=== PATIENT | male | born 1960 | race Caucasian/White ===

== ENCOUNTER 2017-01-07 16:03 | Inpatient (IN) ==
[2017-01-07] MEDS ORDERED: SODIUM CHLORIDE 0.9% 1,000 ML IV STA (16:25)
[2017-01-07] MEDS ORDERED: MIDAZOLAM 2 MG/2 ML VIAL IV ONE (16:26)
[2017-01-07] MEDS ORDERED: ETOMIDATE 20 MG/10 ML VIAL IV STA (16:29)
[2017-01-07] MEDS ORDERED: VECURONIUM 10 MG VIAL IV STA (16:29)
--- NOTE | 2017-01-07 16:40 | Emergency Department Note ---
Akil Chiu Hilary, am scribing for, and in the presence of, Ivan Del Valle MD 16: 32. Ivon Chiu James D, MD, personally performed the services described in this documentation, ascribed by Lauren Barnard in my presence, and it is both accurate and complete 639 . Arrival - Arrival Limitations: Altered Mental Status Source: EMS - History of Present Illness Onset (ago): minute(s) <Ivan Del Valle - Last Filed: 01/07/17 17:01> <Anson Nieves - Last Filed: 01/07/17 18:55> - Arrival Time Seen by Provider: 01/07/17 16:25 - History of Present Illness HPI Narrative: Pt is a 56 y/o white male brought into the ED via EMS for psychiatric behavior. HPI is limited to EMS report due to pt being uncooperative. EMS reports that the pt was "rolling around in the mud" outside of someones house for 2 hours. The resident of the home was planning on giving him a bath with the garden hose when they noticed him "acting weird" so they called the police, who then called EMS. (Lauren Barnard) Pt is a 56 y/o white male brought into the ED via EMS for psychiatric behavior. HPI is limited to EMS report due to pt being uncooperative. EMS reports that the pt was "rolling around in the mud" outside of someones house for 2 hours. The resident of the home was planning on giving him a bath with the garden hose when they noticed him "acting weird" so they called the police, who then called EMS. (Ivan Del Valle) Allergies/Adverse Reactions: Allergies Allergy/AdvReac Type Severity Reaction Status Date / Time No Known Allergies Allergy Verified 05/28/15 12:34 Home Medications: Home Medications Medication Instructions Recorded Confirmed Type Amitriptyline [Elavil] 25 mg PO BEDTIME 01/07/17 History Furosemide [Furosemide] 10 - 20 mg PO DAILY PRN 01/07/17 History Gabapentin [Gabapentin] 300 mg PO TID 01/07/17 History Indomethacin [Indomethacin Cap] 25 mg PO TID W/MEALS 01/07/17 History Latanoprost [Latanoprost 0.005 % 1 drop BOTH EYES BEDTIME 01/07/17 History Oph Soln] Oxycodone HCl/Acetaminophen 1 tablet PO QID PRN 01/07/17 History [Oxycodone-Acetaminophen 10-325] tiZANidine [Zanaflex] 4 mg PO TID PRN 01/07/17 History Review of System - Review of System ROS unobtainable: due to mental status 12 point system: reviewed and no additional remarkable complaints except as stated <Ivan Del Valle - Last Filed: 01/07/17 17:01> Exam <Ivan Del Valle - Last Filed: 01/07/17 17:01> <Anson Nieves - Last Filed: 01/07/17 18:55> Physical Examination: GENERAL: This is a well-nourished, well-developed in no apparent distress. VITAL SIGNS: HEENT: Head is normocephalic and atraumatic. Pupils are equally round and reactive to light. Extraocular movement are intact. Oropharynx is benign with moist mucous membranes. NECK: Neck is soft and supple without tenderness. There are no masses. There is no lymphadenopathy. LUNGS: Lungs are clear to auscultation bilaterally. Chest rises symmetrically. There is no chest wall tenderness. CV: Heart is regular rate and rhythm without murmurs, rubs, or gallops. ABDOMEN: Abdomen is soft, non-tender to palpation. There are no abnormal masses palpated. There is no organomegaly. Bowel sounds are present and active. SKIN: Skin is warm and dry. No rash. EXTREMITIES: Patient has full range of motion without tenderness. There is no pedal edema. NEUROLOGIC: Awake, alert, and oriented x4. Cranial nerves II through XII are grossly intact. There are no motorsensory deficits. PSYCHIATRIC: Normal affect. Normal mood. ([place],Lauren) GENERAL: This is a acutely ill-appearing severely agitated, disheveled white male biting his tongue. Patient covered in mud. VITAL SIGNS: Heart rate 168, temp 104.2, blood pressure 105/78, O2 sat 95% HEENT: Normocephalic, pupils midrange minimally reactive. Conjunctiva injected with purulent discharge bilaterally. Blood present in oropharynx. Poor dentition. NECK: Neck is soft and supple without tenderness. There are no masses. There is no lymphadenopathy. LUNGS: Lungs are clear to auscultation bilaterally. Chest rises symmetrically. There is no chest wall tenderness. CV: Heart is rapid rate and rhythm without murmurs, rubs, or gallops. ABDOMEN: Abdomen is soft, non-tender to palpation. There are no abnormal masses palpated. There is no organomegaly. Bowel sounds are present and active. SKIN: Multiple excoriations in all extremities and on trunk. EXTREMITIES: Patient has full range of motion without tenderness. There is no pedal edema. NEUROLOGIC: Agitated, moves all extremities. PSYCHIATRIC: Agitated, nonverbal (Ivan Del Valle) Vital Signs: Vital Signs Temperature 104.2 F H 01/07/17 16:10 Pulse Rate 167 H 01/07/17 16:10 Respiratory Rate 15 01/07/17 18:33 Blood Pressure 105/78 01/07/17 16:10 Course <Ivan Del Valle - Last Filed: 01/07/17 17:01> - Consultations Time: 17:39 <Anson Nieves - Last Filed: 01/07/17 18:55> Course Narrative: Patient arrived in the emergency department by EMS from [place], [place]. The patient was profoundly agitated, covered in blood, banging his head. Intraosseous line was placed in the right lower extremity by Dr. Patel. Patient was given etomidate and vecuronium for sedation and patient was intubated with an 8.0 endotracheal tube without difficulty. Prior to intubation patient was noted to have blood in his oropharynx. Patient was intubated without difficulty and was noted to have good bilateral breath sounds. Color change was present. There are no breath sounds overlying the epigastrium. (Ivan Del Valle) - Consultations Consultation #1: The hospitalist service has been notified of the admission and will evaluate the patient. (Anson Nieves) Procedures - EJ/Peripheral Line Neck R Consent Obtained: verbal consent Time Out Performed: Yes Skin Cleansed in Sterile Fashion: Yes Size: 16 IV Secured and Dressing Applied: Yes Patient Tolerated Procedure: well - Intubation Time out performed: No sedative: Etomidate Mg Given: 40 paralytic: Vecuronium Mg Given: 20 Laryngoscope: fiber optic video scope ET Tube Size: 8 ET Tube Uncuffed: No Tube Secured Depth (cm): 23 Tube Secured Location: lips Tube Placement Confirmation: visualized tube passing through cords, equal breath sounds bilaterally, no breath sounds over epigastrium, confirmation detector color change Patient Tolerated Procedure: well Intubation Complications: none - IO Right Tibia Consent Obtained: verbal consent Time Out Performed: No Local Anesthetic: lidocaine 1% Amount of anesthesic used (mL): 5 IO Instrument Used to Penetrate the Cortex: battery powered IO drill Patient Tolerated Procedure: well Complications: none <Ivan Del Valle - Last Filed: 01/07/17 17:01> Results <Ivan Del Valle - Last Filed: 01/07/17 17:01> - Labs CBC & BMP: 01/07/17 17:05 01/07/17 17:05 Lab Results: I have reviewed the patients labs - Diagnostic Findings Procedure: Chest x-ray: report reviewed by me <Anson Nieves - Last Filed: 01/07/17 18:55> - Labs Labs: Lab Results WBC 34.5 T/CUMM (4-12) H 01/07/17 17:05 RBC 5.83 MC/CUMM (3.8-5.5) H 01/07/17 17:05 Hgb 17.8 GM/DL (14.0-18.0) 01/07/17 17:05 Hct 51.1 VOL% (42.0-52.0) 01/07/17 17:05 MCV 87.7 FL (87-102) 01/07/17 17:05 MCH 31 PG (27-34) 01/07/17 17:05 MCHC 34.8 GM/DL (32-36) 01/07/17 17:05 RDW 14.0 % (9.3-17.3) 01/07/17 17:05 Plt Count 201 T/CUMM (130-400) 01/07/17 17:05 MPV 11.9 FL (9.6-12.0) 01/07/17 17:05 Neut % (Auto) 88.9 % (38.7-73.9) H 01/07/17 17:05 Lymph % (Auto) 2.4 % (21.2-54.2) L 01/07/17 17:05 Sunflower % (Auto) 7.4 % (1.7-12.7) 01/07/17 17:05 Eos % (Auto) 0.0 % (0.00-10.9) 01/07/17 17:05 Baso % (Auto) 0.4 % (0.0-0.8) 01/07/17 17:05 Neut # (Auto) 30.7 10*3/uL (1.4-7.4) H 01/07/17 17:05 Lymph # (Auto) 0.8 10*3/uL (1.4-4.0) L 01/07/17 17:05 Sunflower # (Auto) 2.6 10*3/uL (0.11-0.8) H 01/07/17 17:05 Eos # (Auto) 0.0 10*3/uL (0.0-0.87) 01/07/17 17:05 Baso # (Auto) 0.1 10*3/uL (0.0-0.2) 01/07/17 17:05 Immature Gran % 0.9 % 01/07/17 17:05 Nucleated RBC % 0.0 /100WBC 01/07/17 17:05 Immature Gran # 0.30 # 01/07/17 17:05 Nucleated RBCs # 0.00 10*3/uL 01/07/17 17:05 INR 1.3 01/07/17 17:05 PT Patient/Control Mix 13.7 SECS 01/07/17 17:05 Circ Anticoag PTT 30.6 SECS (0-40) 01/07/17 17:05 Sodium 146 MMOL/L (136-145) H 01/07/17 17:05 Potassium 4.1 MMOL/L (3.5-5.1) 01/07/17 17:05 Chloride 107 MMOL/L (98-107) 01/07/17 17:05 Carbon Dioxide 21 MMOL/L (21-32) 01/07/17 17:05 Anion Gap 22.1 MMOL/L (5.0-15.0) H 01/07/17 17:05 BUN 52 MG/DL (7-18) H 01/07/17 17:05 Creatinine 2.90 MG/DL (0.70-1.30) H 01/07/17 17:05 GFR Calculation 29 ML/MIN 01/07/17 17:05 BUN/Creatinine Ratio 17.00 RATIO (6.00-20.00) 01/07/17 17:05 Glucose 90 MG/DL (74-106) 01/07/17 17:05 Calculated Osmolality 303.6 MOS/KG (273-304) 01/07/17 17:05 Lactic Acid 3.5 MMOL/L (0.4-2.0) H 01/07/17 17:05 Calcium 8.9 MG/DL (8.5-10.1) 01/07/17 17:05 Total Bilirubin 2.40 MG/DL (0.2-1.0) H 01/07/17 17:05 AST 152 U/L (0-37) H 01/07/17 17:05 ALT 51 U/L (16-61) 01/07/17 17:05 Alkaline Phosphatase 87 U/L (45-117) 01/07/17 17:05 Ammonia 66 UMOL/L (11-32) H 01/07/17 17:05 Troponin I 0.237 NG/ML (0.00-0.045) H 01/07/17 17:05 Total Protein 7.4 G/DL (6.4-8.3) 01/07/17 17:05 Albumin 4.1 G/DL (3.4-5.0) 01/07/17 17:05 Globulin 3.3 G/DL (2.3-3.5) 01/07/17 17:05 Albumin/Globulin Ratio 1.2 RATIO (1.1-2.2) 01/07/17 17:05 ABG pH 7.328 (7.35-7.45) L 01/07/17 16:25 ABG pCO2 37.6 MM HG (35-48) 01/07/17 16:25 ABG pO2 480.0 MM HG (80-95) H 01/07/17 16:25 ABG HCO3 19.9 MMOL/L (20-26) L 01/07/17 16:25 ABG Total CO2 16.0 MMOL/L (23-27) L 01/07/17 16:25 ABG O2 Saturation 99.8 % (95-100) 01/07/17 16:25 ABG Base Excess -5.8 MMOL/L (-2.5-2.5) L 01/07/17 16:25 Lab Results WBC 34.5 T/CUMM (4-12) H 01/07/17 17:05 RBC 5.83 MC/CUMM (3.8-5.5) H 01/07/17 17:05 Hgb 17.8 GM/DL (14.0-18.0) 01/07/17 17:05 Hct 51.1 VOL% (42.0-52.0) 01/07/17 17:05 MCV 87.7 FL (87-102) 01/07/17 17:05 MCH 31 PG (27-34) 01/07/17 17:05 MCHC 34.8 GM/DL (32-36) 01/07/17 17:05 RDW 14.0 % (9.3-17.3) 01/07/17 17:05 Plt Count 201 T/CUMM (130-400) 01/07/17 17:05 MPV 11.9 FL (9.6-12.0) 01/07/17 17:05 Neut % (Auto) 88.9 % (38.7-73.9) H 01/07/17 17:05 Lymph % (Auto) 2.4 % (21.2-54.2) L 01/07/17 17:05 Sunflower % (Auto) 7.4 % (1.7-12.7) 01/07/17 17:05 Eos % (Auto) 0.0 % (0.00-10.9) 01/07/17 17:05 Baso % (Auto) 0.4 % (0.0-0.8) 01/07/17 17:05 Neut # (Auto) 30.7 10*3/uL (1.4-7.4) H 01/07/17 17:05 Lymph # (Auto) 0.8 10*3/uL (1.4-4.0) L 01/07/17 17:05 Sunflower # (Auto) 2.6 10*3/uL (0.11-0.8) H 01/07/17 17:05 Eos # (Auto) 0.0 10*3/uL (0.0-0.87) 01/07/17 17:05 Baso # (Auto) 0.1 10*3/uL (0.0-0.2) 01/07/17 17:05 Total Counted 100 01/07/17 17:05 Immature Gran % 0.9 % 01/07/17 17:05 Nucleated RBC % 0.0 /100WBC 01/07/17 17:05 Immature Gran # 0.30 # 01/07/17 17:05 Segmented Neutrophils 90 % (50-85) H 01/07/17 17:05 Band Neutrophils 2 % (0-10) 01/07/17 17:05 Lymphocytes 3 % (20-55) L 01/07/17 17:05 Monocytes 5 % (2-15) 01/07/17 17:05 Nucleated RBCs # 0.00 10*3/uL 01/07/17 17:05 Platelet Estimate Normal 01/07/17 17:05 INR 1.3 01/07/17 17:05 PT Patient/Control Mix 13.7 SECS 01/07/17 17:05 Circ Anticoag PTT 30.6 SECS (0-40) 01/07/17 17:05 Sodium 146 MMOL/L (136-145) H 01/07/17 17:05 Potassium 4.1 MMOL/L (3.5-5.1) 01/07/17 17:05 Chloride 107 MMOL/L (98-107) 01/07/17 17:05 Carbon Dioxide 21 MMOL/L (21-32) 01/07/17 17:05 Anion Gap 22.1 MMOL/L (5.0-15.0) H 01/07/17 17:05 BUN 52 MG/DL (7-18) H 01/07/17 17:05 Creatinine 2.90 MG/DL (0.70-1.30) H 01/07/17 17:05 GFR Calculation 29 ML/MIN 01/07/17 17:05 BUN/Creatinine Ratio 17.00 RATIO (6.00-20.00) 01/07/17 17:05 Glucose 90 MG/DL (74-106) 01/07/17 17:05 Calculated Osmolality 303.6 MOS/KG (273-304) 01/07/17 17:05 Lactic Acid 3.5 MMOL/L (0.4-2.0) H 01/07/17 17:05 Calcium 8.9 MG/DL (8.5-10.1) 01/07/17 17:05 Total Bilirubin 2.40 MG/DL (0.2-1.0) H 01/07/17 17:05 AST 152 U/L (0-37) H 01/07/17 17:05 ALT 51 U/L (16-61) 01/07/17 17:05 Alkaline Phosphatase 87 U/L (45-117) 01/07/17 17:05 Ammonia 66 UMOL/L (11-32) H 01/07/17 17:05 Troponin I 0.237 NG/ML (0.00-0.045) H 01/07/17 17:05 Total Protein 7.4 G/DL (6.4-8.3) 01/07/17 17:05 Albumin 4.1 G/DL (3.4-5.0) 01/07/17 17:05 Globulin 3.3 G/DL (2.3-3.5) 01/07/17 17:05 Albumin/Globulin Ratio 1.2 RATIO (1.1-2.2) 01/07/17 17:05 Urine Color Dark yellow (Yellow) 01/07/17 17:05 Urine Appearance Cloudy (Clear) 01/07/17 17:05 Urine pH 5.0 (4.5-8.0) 01/07/17 17:05 Ur Specific [place] 1.023 (1.001-1.035) 01/07/17 17:05 Urine Protein >=500 MG/DL 01/07/17 17:05 Urine Glucose (UA) Negative mg/dL (Negative) 01/07/17 17:05 Urine Ketones 5 mg/dL (Negative) 01/07/17 17:05 Urine Blood Large mg/dL (Negative) 01/07/17 17:05 Urine Nitrate Negative (Negative) 01/07/17 17:05 Urine Bilirubin Negative mg/dL (Negative) 01/07/17 17:05 Urine Urobilinogen 2.0 EU/DL (0.2-1.0) H 01/07/17 17:05 Urine Leukocytes Negative Jasmina/ul (Negative) 01/07/17 17:05 Urine RBC 92 /HPF (0-4) 01/07/17 17:05 Urine WBC 3 /HPF (0-6) 01/07/17 17:05 Ur Squamous Epith Cells Occasional /HPF (0-10) 01/07/17 17:05 Ur Culture Indicated? Not indicated 01/07/17 17:05 ABG pH 7.328 (7.35-7.45) L 01/07/17 16:25 ABG pCO2 37.6 MM HG (35-48) 01/07/17 16:25 ABG pO2 480.0 MM HG (80-95) H 01/07/17 16:25 ABG HCO3 19.9 MMOL/L (20-26) L 01/07/17 16:25 ABG Total CO2 16.0 MMOL/L (23-27) L 01/07/17 16:25 ABG O2 Saturation 99.8 % (95-100) 01/07/17 16:25 ABG Base Excess -5.8 MMOL/L (-2.5-2.5) L 01/07/17 16:25 Urine Opiates Screen Negative (Negative) 01/07/17 17:05 Ur Barbiturates Screen Negative (Negative) 01/07/17 17:05 Ur Phencyclidine Scrn Negative (Negative) 01/07/17 17:05 U Amphetamine/Methamph Positive (Negative) H 01/07/17 17:05 U Benzodiazepines Scrn Negative (Negative) 01/07/17 17:05 U Cocaine Metab Screen Negative (Negative) 01/07/17 17:05 U Cannabinoids Screen Negative (Negative) 01/07/17 17:05 (Anson Nieves) Disposition Case discussed with: patient <Ivan Del Valle - Last Filed: 01/07/17 17:01> <Anson Nieves - Last Filed: 01/07/17 18:55> Clinical Impression: Altered mental status, Agitation, Profound agitation, Probable septic shock, Methamphetamine abuse Disposition: Still a Patient
[2017-01-07] MEDS ORDERED: SODIUM CHLORIDE 0.9% 2,000 ML IV STA (16:42)
[2017-01-07] MEDS ORDERED: MIDAZOLAM 10 MG/2 ML VIAL ONE (16:47)
--- NOTE | 2017-01-07 16:48 | XRay Report ---
Portable chest Date: 01/07/2017 Clinical history: Alteration of consciousness Comparison: None Technique: Portable AP supine chest Findings: The heart is minimally enlarged. The endotracheal tube is in satisfactory position. Atelectasis/infiltration at the left lung base. Degenerative changes noted. Impression: Endotracheal tube in satisfactory position. Atelectasis/infiltration at left lung base. PROCEDURE INTERPRETED AT [facility] DEPARTMENT OF RADIOLOGY Final Report Signed by: Dr. Jodie Pa
[2017-01-07 16:49] LABS: ABG Base Excess -5.8 MMOL/L (-2.5-2.5); ABG HCO3 19.9 MMOL/L (20-26); ABG Oxygen Saturation 99.8 % (95-100); ABG PCO2 37.6 MM HG (35-48); ABG PH 7.328 (7.35-7.45)
[2017-01-07] MEDS ORDERED: MIDAZOLAM 10 MG/2 ML VIAL IV STA (17:10)
[2017-01-07 17:13] LABS: Basophils # 0.1 10*3/uL (0.0-0.2); Basophils % 0.4 % (0.0-0.8); Hematocrit 51.1 VOL% (42.0-52.0); Hemoglobin 17.8 GM/DL (14.0-18.0); Immature Granulocytes % 0.9 %; Lymphocytes # 0.8 10*3/uL (1.4-4.0); Lymphocytes % 2.4 % (21.2-54.2); Mean Corpuscular HGB Conc 34.8 GM/DL (32-36); Mean Corpuscular Hemoglobin 31 PG (27-34); Mean Corpuscular Volume 87.7 FL (87-102); Mean Platelet Volume 11.9 FL (9.6-12.0); Monocytes # 2.6 10*3/uL (0.11-0.8); Monocytes % 7.4 % (1.7-12.7); Neutrophils # 30.7 10*3/uL (1.4-7.4); Neutrophils % 88.9 % (38.7-73.9); Platelet Count 201 T/CUMM (130-400); Red Blood Count 5.83 MC/CUMM (3.8-5.5); White Blood Count 34.5 T/CUMM (4-12)
[2017-01-07 17:24] LABS: INR 1.3; PT Patient Result 13.7 SECS; Partial Thromboplastin Time 30.6 SECS (0-40)
[2017-01-07 17:34] LABS: Albumin 4.1 G/DL (3.4-5.0); Bilirubin,Total 2.4 MG/DL (0.2-1.0); Calcium 8.9 MG/DL (8.5-10.1); Osmolality,Calculated 303.6 MOS/KG (273-304); Potassium 4.1 MMOL/L (3.5-5.1); Total Protein 7.4 G/DL (6.4-8.3)
[2017-01-07 17:35] LABS: Troponin I Only 0.237 NG/ML (0.00-0.045)
[2017-01-07] MEDS ORDERED: ETOMIDATE 20 MG/10 ML VIAL IV ONE (17:38)
[2017-01-07] MEDS ORDERED: VECURONIUM 10 MG VIAL IV ONE (17:38)
[2017-01-07 17:41] LABS: Apearance,Urine CLOUDY (Clear); Bilirubin,Urine Negative (Negative); Blood, Urine Large mg/dL (Negative); Glucose,Urine (UA) Negative (Negative); Ketones,Urine 5 mg/dL (Negative); Nitrite,Urine Negative (Negative); Protein,Urine >=500 MG/DL; RBC,Urine 92 /HPF (0-4); Squamous Epithelial Cell,Urine Occasional /HPF (0-10); Urine Color Dark yellow (Yellow); Urine Specific Gravity 1.023 (1.001-1.035); WBC,Urine 3 /HPF (0-6)
[2017-01-07] MEDS ORDERED: CEFTAROLINE 600 MG in SODIUM CHLORIDE 0.9% 100 ML IV STA (17:41)
[2017-01-07 17:47] LABS: Barbiturates Screen,Urine Negative (Negative); Benzodiazepines Screen,Urine Negative (Negative); Cannabinoid Screen,Urine Negative (Negative); Opiate Screen,Urine Negative (Negative); Phencyclidine Screen,Urine Negative (Negative)
--- NOTE | 2017-01-07 17:57 | CT Report ---
CT brain Indication: Mental status changes Comparison: None available Technique: Axial CT imaging of the brain is performed without contrast with 3 mm increments. Findings: No evidence of hemorrhage, mass mass effect midline shift or acute infarct seen. The brain parenchyma attenuation and differentiation appears within normal limits. The ventricles and cisterns are normal in caliber. No cranial or skull base abnormality is identified. Impression: No evidence of abnormality demonstrated. This CT exam was performed using one or more the following dose reduction techniques: Automated exposure control, adjustment of the MA and/or KV according to patient size, or use of iterative reconstruction technique. PROCEDURE INTERPRETED AT [facility] DEPARTMENT OF RADIOLOGY Final Report Signed by: Dr. Santhosh Alonso
[2017-01-07 18:05] LABS: Band Neutrophils 2 % (0-10); Lymphocytes 3 % (20-55); Platelet Estimate Normal; Segmented Neutrophils 90 % (50-85); Total Cells Counted 100
--- NOTE | 2017-01-07 18:11 | Hospitalist History & Physical ---
Assessment and Plan (1) Severe sepsis with septic shock Status: Acute Assessment and plan: We will admit to ICU and initiate sepsis bundle. Current Visit: Yes (2) Acute renal failure Status: Acute Assessment and plan: BUN/Creatinine noted at 52/2.90 at admission; this is likely secondary to volume depletion. We will rehydrate and reassess in AM. Current Visit: Yes (3) Pneumonia Status: Acute Assessment and plan: CXR revealed left lung base infiltrate /ateletctasis; will start empiric antibiotics. Will obtain naranjo cultures. Current Visit: Yes (4) Increased ammonia level Status: Acute Assessment and plan: Ammonia noted at 66; will start lactulose and reassess in AM. Current Visit: Yes History of Present Illness Chief complaint: altered mental status History of present illness: This is a very unfortunate 56 year old male that presented to the ED at [facility] this afternoon by EMS for altered mental status. There is no medical history available on this patient due to his altered mentation. Apparently, he was observed rolling around in a mudhole trying to chew his hands off. He was grossly altered, agitated, and combative upon arrival to the ED.He was electively intubated in the ED for airway protection. At the time of presentation, the patient was noted to be profoundly tachycardic with a heart rate of 167 and hyperthermic with a temperature of 104.2. Labs were obtained which revealed gross leukocytosis with a white blood cell count of 34.5, decrease in renal funtion with BUN of 52 and creatinine of 2.90, lactid acid of 3.5, annmonia of 66, AST of 152, total bilirubin of 2.40 and troponin of 0.237. Chest radiograph rvealed atletectasis and infiltration at the left lung base. CT head was essentially unremarkable; no evidence of acute intracranial process or mass effect. After brief discussion with both Dr. Nieves and , the patient will admitted to the hospitalist service for continuation of care. We will consult pulmonary to assist during the clinical encounter. Allergies Allergy/AdvReac Type Severity Reaction Status Date / Time No Known Allergies Allergy Verified 05/28/15 12:34 Medical,Surgical,& Family Hx - Social History Smoking Status: Unknown if ever smoked Frequency of Alcohol Use: Unknown Type of Drug Use: Unknown ROS unobtainable: due to endotracheal tube, due to mental status Exam - Constitutional Vitals: Period Temp Pulse Resp BP Sys/Raman Pulse Ox Last 24 Hr 104.2 F-104.2 F 167-167 12-12 105-105/78-78 General appearance: normal weight, severe distress, disheveled, other (dirty; not well kept) - Head Head exam: Present: normal inspection, normocephalic, atraumatic - Eye Eye exam: Present: EOMI, scleral icterus, other (drainage from both eyes). Absent: conjunctival injection Pupils: Present: JENNIFFER, normal accommodation - ENT ENT exam: Present: normal exam, normal external ear exam, other (poor dentation) - Neck Neck exam: Present: normal inspection. Absent: lymphadenopathy, meningismus, tenderness, thyromegaly - Respiratory Respiratory exam: Present: clear to auscultation bilaterally, other (intubated; ETT in place) - Cardiovascular Cardiovascular exam: Present: regular rate and rhythm, tachycardia. Absent: carotid bruit, diastolic murmur, gallop, JVD, rubs, systolic murmur - GI/Abdominal GI/Abdominal exam: Present: normal bowel sounds, soft. Absent: distended, firm , mass - Extremities Exam Extremities exam: Present: other (deformity to left leg) - Neurological Exam Neurological exam: Present: altered, other (sedated on ventilator) - Psychiatric Psychiatric exam: Present: other (sedated) - Skin Skin exam: Present: other (dirty and bloody) Results - Labs CBC & BMP: 01/07/17 17:05 01/07/17 17:05 Lab Results: I have reviewed the past 24 hour labs Sepsis - Sepsis Classification of Sepsis: Septic Shock
[2017-01-07] MEDS: MIDAZOLAM 100 MG in SODIUM CHLORIDE 0.9% 80 ML IV SCH (18:30)
[2017-01-07] MEDS ORDERED: CEFTAROLINE 600 MG VIAL IV ONE (18:32)
[2017-01-07] MEDS ORDERED: VECURONIUM 10 MG VIAL IV PRN (19:21)
[2017-01-07] MEDS ORDERED: LORazepam 2 MG/1 ML VIAL IV PRN (19:21)
[2017-01-07] MEDS: PROPOFOL 1,000 MG/100 ML BOTTLE IV SCH (20:05)
[2017-01-07] MEDS: SILVER SULFADIAZINE 1% CREAM 25 GM TUBE TOP SCH (23:36)
[2017-01-08] MEDS: PROPOFOL 1,000 MG/100 ML BOTTLE IV SCH ×5 (00:26→20:08)
[2017-01-08 03:41] LABS: ABG Base Excess -8.9 MMOL/L (-2.5-2.5); ABG HCO3 17.6 MMOL/L (20-26); ABG Oxygen Saturation 99.3 % (95-100); ABG PCO2 40.7 MM HG (35-48); ABG PH 7.259 (7.35-7.45); ABG TCO2 15.2 MMOL/L (23-27); Allen Test Positive; Pt O2 Delivery Device Ventilator
[2017-01-08 06:42] LABS: Basophils % 0.2 % (0.0-0.8); Hemoglobin 16.1 GM/DL (14.0-18.0); Immature Granulocytes % 0.5 %; Lymphocytes # 2.1 10*3/uL (1.4-4.0); Lymphocytes % 11.2 % (21.2-54.2); Mean Corpuscular HGB Conc 33.5 GM/DL (32-36); Mean Corpuscular Hemoglobin 30 PG (27-34); Mean Corpuscular Volume 88.9 FL (87-102); Mean Platelet Volume 12.6 FL (9.6-12.0); Monocytes # 1.7 10*3/uL (0.11-0.8); Monocytes % 9.4 % (1.7-12.7); Neutrophils # 14.5 10*3/uL (1.4-7.4); Neutrophils % 78.7 % (38.7-73.9); Red Cell Distribution Width 14.7 % (9.3-17.3)
[2017-01-08 06:53] LABS: Platelet Count 110 T/CUMM (130-400); White Blood Count 18.4 T/CUMM (4-12)
--- NOTE | 2017-01-08 06:59 | XRay Report ---
Exam: XR chest 1V portable Date: 01/08/2017 4:00 AM Indication: Follow-up ventilator respiratory failure Comparison: 01/07/2017 Technical: AP portal Findings: Endotracheal tube at the level aortic knob. Heart is normal in size. External cardiac leads are present. No obvious consolidating infiltrates or effusions or pneumothorax. Arthritic change present shoulders bilaterally. Impression: 1. Stable position of the endotracheal tube 2. No significant interval change PROCEDURE INTERPRETED AT [facility] DEPARTMENT OF RADIOLOGY Final Report Signed by: Dr. Fady Carlos
[2017-01-08 07:16] LABS: Lactic Acid 2.2 MMOL/L (0.4-2.0)
[2017-01-08 07:29] LABS: Albumin 3.1 G/DL (3.4-5.0); Bilirubin,Total 1.7 MG/DL (0.2-1.0); Magnesium 2.5 MG/DL (1.8-2.4); Potassium 3.7 MMOL/L (3.5-5.1); Total Protein 6.1 G/DL (6.4-8.3)
[2017-01-08 07:30] LABS: Troponin I Only 0.063 NG/ML (0.00-0.045)
--- NOTE | 2017-01-08 09:36 | Pulmonology Consult Note ---
History of Present Illness Chief complaint: Mechanical ventilation. Altered mental status. Drug abuse. History of present illness: Mr. Espitia is a 56 year old white male whom I been asked to see in pulmonary consultation for management of mechanical ventilation and pulmonary problems. This patient was brought to the emergency room with irrational behavior. He did have an altered mental status. He was observed rolling around in a motor hole trying to chew his hands off. He was extremely agitated and combative when he arrived in the emergency room. He was electively intubated in the emergency department for airway protection. At the time of admission he had a marked tachycardia with heart rate of 167. He was hypothermic with a temperature of 104.2. He had a white blood cell count of 34,500. He had a creatinine of 2.9 with a BUN of 52. Lactic acid level is 3.5 and ammonia level is elevated 656. Total bilirubin was elevated 2.4 and transaminases were up. His troponin was 0.237. He had an elevated CPK. Chest x-ray shows at least mild atelectasis at the right base and the left base. He had a CT of the head which showed no acute changes. Drug toxicology was positive for amphetamine/ methamphetamine. Patient is stabilized on mechanical ventilation for the present time. Review of his hospital records show that he receives pain medicines from Dr. Hoyos and he said multiple drug screens which showed no irregularity. Past history. See above. Patient is disabled but we do not know why. There is essentially no other information known about him. I am not sure if any family members or friends have shown up at this point. Social history. Disabled. Because of disability is not known. Does appear to patient takes chronic pain medicines. Family history. Unknown. Chest x-ray. An admission there was mild atelectasis at the right base and the left base. We will follow-up chest x-ray on mechanical ventilation this appears to have resolved. ABGs on mechanical ventilation FiO2 50% shows a pH 7.259, PCO2 40.7, PO2 of 217 and a bicarb of 17.6. Lab. Sodium is elevated 150. Potassium is 3.7. Creatinine is dropped from 2.90-1.40. BUN is 43. Glucoses are normal. Lactic acid remains slightly elevated 2.2 at admission lactic acid was 3.5. Total bilirubin is dropped from 2.40-1.70. AST is elevated 214 and ALT is elevated 65. Alkaline Dayan is normal. Ammonia has dropped from 66-27. Total CPK is 5092. INR is 1.1. White blood cell count is dropped from 34,000 518,400. H&H is 16.1/48.0. Platelet count is dropped from 201,000 210,000. Physical exam. Vital signs. See below. Temperature is been as high as 104.5. Temp is 96.5. Neurologic. Patient is sedated. He reportedly moves all 4 extremities and grossly his cranial nerves were intact. Time of admission. Psychological. Altered mental status at admission. Now sedated Skin. There are multiple wounds on all 4 extremities. See photographs. Face. Symmetrical. Lips and tongue are normal. Neck. Symmetrical. No meningismus. Lymphatics. No submandibular cervical supraclavicular or epitrochlear adenopathy Chest is clear. Heart. No gallop Abdomen. Nondistended. Only rare bowel sounds. and rectal deferred. Lower extremities. Chronic venous stasis. CT scan Arterial. Carotid upstroke is fair. Radial pulses are palpable. Lower extremity pulses are nonpalpable. Venous exam. Veins of the neck and upper extremities appear to be normal. Chronic venous stasis over the lower extremities. The remainder the physical exam is noncontributory. Impression. 1. Altered mental status resulting in multiple self-inflicted injuries and requiring intubation to protect airways and sedation to protect the patient. 2. Multiple skin injuries all 4 extremities. 3. Disability. Reasons unknown. 4. Probable chronic pain based on records available to us. 5. Drug overdose with toxicology positive for amphetamines/methamphetamine. Consider the possibility of other drugs. Plan. 1. Mechanical ventilation. Weaning protocol 2. Physical therapy protocol while on mechanical ventilation. 3. Watch chest x-ray and ABGs for evidence of aspiration injury. 4. See orders. Home Medications Medication Instructions Recorded Confirmed Type Amitriptyline [Elavil] 25 mg PO BEDTIME 01/07/17 History Furosemide [Furosemide] 10 - 20 mg PO DAILY PRN 01/07/17 History Gabapentin [Gabapentin] 300 mg PO TID 01/07/17 History Indomethacin [Indomethacin Cap] 25 mg PO TID W/MEALS 01/07/17 History Latanoprost [Latanoprost 0.005 % 1 drop BOTH EYES BEDTIME 01/07/17 History Oph Soln] Oxycodone HCl/Acetaminophen 1 tablet PO QID PRN 01/07/17 History [Oxycodone-Acetaminophen 10-325] tiZANidine [Zanaflex] 4 mg PO TID PRN 01/07/17 History Allergies Allergy/AdvReac Type Severity Reaction Status Date / Time No Known Allergies Allergy Verified 05/28/15 12:34 Exam (Pulmonay) H&P - Constitutional Vitals: Period Temp Pulse Resp BP Sys/Raman Pulse Ox Last 24 Hr 96.6 F-104.5 F 90-147 12-23 83-136/58-98 94-100 Medical,Surgical,& Family Hx - Social History Smoking Status: Unknown if ever smoked Frequency of Alcohol Use: Unknown Type of Drug Use: Unknown Results - Labs CBC & BMP: 01/08/17 06:30 01/08/17 06:30
[2017-01-08] MEDS: SILVER SULFADIAZINE 1% CREAM 25 GM TUBE TOP SCH (09:43)
--- NOTE | 2017-01-08 13:43 | Hospitalist Progress Note ---
Assessment and Plan (1) Ventilator dependence Status: Acute Current Visit: Yes (2) Altered mental status Status: Acute Current Visit: Yes (3) Agitation Status: Acute Current Visit: Yes (4) Acute renal failure Status: Acute Current Visit: Yes (5) Increased ammonia level Status: Acute Current Visit: Yes (6) Methamphetamine abuse Status: Acute Current Visit: Yes Hospitalist: Subjective Interval history: No acute events overnight. Patient is intubated and sedated. Noted to have multiple abrasions all over body. Wound care consulted. Lactic acid, creatinine and leukocytosis improving. Pulmonary consulted for assistance with vent. Also noted to have pus coming from eyes, started polymyxin. Exam - Constitutional Vitals: Period Temp Pulse Resp BP Sys/Raman Pulse Ox Last 24 Hr 96.6 F-104.5 F 90-147 12-23 83-136/58-98 94-100 General appearance: over weight - Head Head exam: Present: normocephalic, atraumatic - Eye Eye exam: Present: EOMI Pupils: Present: JENNIFFER - ENT ENT exam: Present: normal exam - Neck Neck exam: Present: normal inspection - Respiratory Respiratory exam: Present: clear to auscultation bilaterally. Absent: rhonchi, wheezes - Cardiovascular Cardiovascular exam: Present: regular rate and rhythm - GI/Abdominal GI/Abdominal exam: Present: normal bowel sounds, soft - Extremities Exam Extremities exam: Present: normal inspection - Neurological Exam Neurological exam: Present: other (sedated) - Skin Skin exam: Present: warm, intact Results - Labs CBC & BMP: 01/08/17 06:30 01/08/17 06:30
[2017-01-08] MEDS: DESITIN 4OZ/NYSTATIN 15 GRAM MIXTURE PASTE TOP SCH ×2 (14:04→20:07)
[2017-01-08] MEDS: ENOXAPARIN 40 MG/0.4 ML SYRINGE SUBCUT SCH (14:05)
[2017-01-08] MEDS: POLYMYXIN/TRIMETHOPRIM OPH SOL 10 ML BOTTLE BOTH EYES SCH ×3 (14:05→20:06)
[2017-01-08] MEDS: AMPICILLIN/SULBACTAM 1,500 MG in SODIUM CHLORIDE 0.9% 100 ML IV SCH ×2 (14:05→18:35)
[2017-01-08] MEDS: MIDAZOLAM 100 MG in SODIUM CHLORIDE 0.9% 80 ML IV SCH ×2 (17:07→20:08)
[2017-01-08] MEDS ORDERED: DEXTROSE 5% NACL 0.45% 500 ML IV SCH (22:00)
[2017-01-08] MEDS: DEXTROSE 5% NACL 0.45% 1,000 ML IV SCH (23:47)
[2017-01-09] MEDS: AMPICILLIN/SULBACTAM 1,500 MG in SODIUM CHLORIDE 0.9% 100 ML IV SCH ×4 (01:22→20:43)
[2017-01-09] MEDS: PROPOFOL 1,000 MG/100 ML BOTTLE IV SCH ×6 (01:23→22:43)
[2017-01-09 04:18] LABS: ABG Base Excess 1.9 MMOL/L (-2.5-2.5); ABG HCO3 26.1 MMOL/L (20-26); ABG Oxygen Saturation 97.4 % (95-100); ABG PCO2 45.7 MM HG (35-48); ABG PH 7.388 (7.35-7.45); ABG PO2 88.9 MM HG (80-95); ABG TCO2 23.3 MMOL/L (23-27); Allen Test Positive; Pt O2 Delivery Device Ventilator
[2017-01-09 05:52] LABS: Basophils % 0.2 % (0.0-0.8); Eosinophils % 0.1 % (0.00-10.9); Hematocrit 44.3 VOL% (42.0-52.0); Hemoglobin 14.9 GM/DL (14.0-18.0); Immature Granulocytes % 1.3 %; Immature Granulocytes Absolute 0.24 #; Lymphocytes % 5.3 % (21.2-54.2); Mean Corpuscular HGB Conc 33.6 GM/DL (32-36); Mean Corpuscular Hemoglobin 30 PG (27-34); Mean Corpuscular Volume 88.4 FL (87-102); Mean Platelet Volume 13.3 FL (9.6-12.0); Monocytes # 1.4 10*3/uL (0.11-0.8); Monocytes % 7.7 % (1.7-12.7); Neutrophils # 15.6 10*3/uL (1.4-7.4); Neutrophils % 85.4 % (38.7-73.9); Platelet Count 101 T/CUMM (130-400); Red Blood Count 5.01 MC/CUMM (3.8-5.5); White Blood Count 18.3 T/CUMM (4-12)
[2017-01-09] MEDS: DEXTROSE 5% NACL 0.45% 1,000 ML IV SCH ×3 (06:23→22:43)
[2017-01-09 06:44] LABS: Albumin 2.7 G/DL (3.4-5.0); Bilirubin,Total 1.1 MG/DL (0.2-1.0); Calcium 8.4 MG/DL (8.5-10.1); Osmolality,Calculated 306.7 MOS/KG (273-304); Potassium 3.6 MMOL/L (3.5-5.1); Total Protein 5.7 G/DL (6.4-8.3)
--- NOTE | 2017-01-09 06:58 | XRay Report ---
Portable chest Date: 01/09/2017 Clinical history: Ventilator Comparison: 01/08/2017 Technique: Portable AP sitting chest Findings: The heart is minimally enlarged with stable support devices. Progressive atelectasis/consolidation at the right lung base with relative elevation of the right hemidiaphragm. Associated larger right pleural effusion. Stable mediastinum and osseous structures. Impression: Progressive atelectasis/infiltration at the right lung base with larger right pleural effusion and progressive elevation of the right hemidiaphragm. Stable supportive devices. PROCEDURE INTERPRETED AT [facility] DEPARTMENT OF RADIOLOGY Final Report Signed by: Dr. Jodie Pa
[2017-01-09] MEDS: SILVER SULFADIAZINE 1% CREAM 25 GM TUBE TOP SCH (09:36)
[2017-01-09] MEDS: POLYMYXIN/TRIMETHOPRIM OPH SOL 10 ML BOTTLE BOTH EYES SCH ×4 (09:36→20:43)
[2017-01-09] MEDS: DESITIN 4OZ/NYSTATIN 15 GRAM MIXTURE PASTE TOP SCH ×2 (09:37→20:43)
--- NOTE | 2017-01-09 10:13 | Event Note ---
In hospital diagnostic and therapeutic fiberoptic bronchoscopy. Bilateral lavages from the right upper lung, right middle lung, right lower lung, left upper lung and left lower lung were sent for cytology, Gram stain, bacterial culture, fungal stains and culture. This is a 56-year-old white male with altered mental status who is on mechanical ventilation. His initial chest x-ray showed early bibasilar infiltrates. These seem to clear after he was intubated and started on mechanical ventilation. Today's x-ray shows that he has atelectasis of the right middle lung and right lower lung. There is microatelectasis of the left lower lung. For these reasons she is evaluated with fiberoptic bronchoscopy. The endotracheal tube is in good position. Distal trachea was erythematous. The john was sharp. Right mainstem bronchus was occluded with thick tenacious secretions and brownish material that appeared to be gastric in etiology. This extended into the right upper lung, the right middle lung and the right lower lung. These areas were lavaged and suctioned until clear. There was underlying erythema of the bronchial mucosa but no friability. No foreign bodies other than gastric contents were seen. Left mainstem bronchus was occluded with thick tenacious whitish and brownish discolored material. This had the appearance of pulmonary secretions and gastric contents. This extended into the left upper lung where there was friability of the lingula. The left upper lung was lavaged and suctioned until clear. Material also virtually occluded the left lower lung. This area was again lavaged and suction until clear. In the left lower lung there was endobronchial erythema but no erosions and no significant friability. There were no endobronchial lesions to suggest cancer in either bronchial tree. Patient tolerated procedure well there were no complications. Impression. 1. Mechanical ventilation. 2. Ineffective cough 3. Aspiration of gastric contents into the lungs. 4. Retention of gastric contents and pulmonary secretions. 5. Atelectasis of the right middle lung right lower lung and left lower lung secondary to retention of secretions and aspirate. Plan. 1. Check bronchoscopy specimens 2. Follow-up chest x-ray 3. Is possible this patient will need a repeat bronchoscopy.
--- NOTE | 2017-01-09 10:16 | Pulmonology Progress Note ---
Pulmonary - PN: Subj Interval history: This is a 56-year-old white male whom I saw in pulmonary consultation on 2016. My impressions were. 1. Altered mental status resulting in multiple self-inflicted injuries and requiring intubation to protect airways and sedation to protect the patient. 2. Multiple skin injuries all 4 extremities. 3. Disability. Reasons unknown. 4. Probable chronic pain based on records available to us. 5. Drug overdose with toxicology positive for amphetamines/methamphetamine. Consider the possibility of other drugs. 6. Since my initial visit chart notes from the nurse says that sister who lives out of town his call. She says she is the only family member that still tries to help him. She says she has had problems with drugs since age 16. He is been in and out of the [facility] in the past. His sister says he is currently on probation she is currently reporting to his poor role officer. See nurse's notes for more complete information. 01/09/2017. This patient is sedated. He is on the weaning protocol. His x-ray showed right middle lung right lower lung and left lower lung atelectasis. He was evaluated with fiberoptic bronchoscopy this morning. He had retained pulmonary secretions and he had gastric contents bilaterally. This was extensive. Specimens were sent for cytology, bacterial and fungal studies. He tolerated procedure well. Follow-up chest x-ray is pending. This patient has a gram-positive cocci growing from blood cultures. His previous sputum's have shown a gram-negative gab and gram-positive cocci. This patient is on Zosyn. His renal failure has resolved. I will add Levaquin 500 mg IV piggyback once a day until we see what the cultures and sensitivities are. His admit creatinine was 2.90 and is now dropped to 0.80. Admit white blood cell count was 34,500 and it has now dropped 18,003. H&H and platelets are stable. With aspiration injury am going to cover this patient with Solu-Medrol 40 IV push twice a day. His ABGs on mechanical ventilation PEEP of 5 and FiO2 50% shows a pH 7.39, PCO2 of 46, PO2 of 89 and a bicarb of 26.1. Note the sodium is 152 with a potassium of 3.6. Transaminases are elevated. Creatinine was 5092 and has dropped to 3864 Labs been reviewed. Medicines been reviewed. Physical exam. Vital signs. See below. Neurologic. Patient moves all fours. He is sedated. Extremities and face and trunk show multiple abrasions which are being treated. Face is symmetrical. Lips and tongue are normal. Neck. No meningismus. Lymphatics. No submandibular cervical supraclavicular or epitrochlear adenopathy. Chest. Coarse large airway congestion. Bibasilar inspiratory squeaks. Heart. No gallop Abdomen. Rare bowel sounds. Lower extremities show some chronic venous stasis changes. The remainder the exam is noncontributory. Plan. 1. See my note 01/09/2017. Check blood cultures. On Zosyn. Add Levaquin. Check bronchoscopy specimens. Fiberoptic bronchoscopy Aspiration. Add Solu-Medrol. 2. Daily chest x-ray, ABGs and lab. 3. Mechanical ventilation. Weaning protocol 4. Physical therapy protocol while on mechanical ventilation. Exam (Progress Note) - Constitutional Vitals: Period Temp Pulse Resp BP Sys/Raman Pulse Ox Last 24 Hr 97.4 F-98.5 F 14-121 10-25 91-124/61-90 94-100 Results - Labs CBC & BMP: 01/09/17 05:14 01/09/17 05:14
[2017-01-09] MEDS: LEVOFLOXACIN INJ 500 MG in PREMIX 1 EACH IV SCH (11:47)
[2017-01-09] MEDS: methylPREDNISolone SOD SUC 40 MG/1 ML VIAL IV SCH ×2 (11:47→22:48)
[2017-01-09] MEDS: ENOXAPARIN 40 MG/0.4 ML SYRINGE SUBCUT SCH (13:17)
[2017-01-09] MEDS ORDERED: GLUCAGON 1 MG VIAL IM PRN (15:04)
[2017-01-09] MEDS ORDERED: DEXTROSE 50% 25 GM/50 ML VIAL IV PRN (15:04)
[2017-01-09] MEDS ORDERED: MAGNESIUM SULF RIDER 2 GM in PREMIX 1 EACH IV PRN (15:05)
[2017-01-09] MEDS ORDERED: POTASSIUM CHLORIDE RIDER 10 MEQ in PREMIX 1 EACH IV PRN (15:05)
[2017-01-09] MEDS ORDERED: MAGNESIUM SULF RIDER 4 GM in PREMIX 1 EACH IV PRN (15:05)
--- NOTE | 2017-01-09 15:14 | Hospitalist Progress Note ---
Assessment and Plan (1) Ventilator dependence Status: Acute Current Visit: Yes (2) Altered mental status Status: Acute Current Visit: Yes (3) Agitation Status: Acute Current Visit: Yes (4) Acute renal failure Status: Acute Current Visit: Yes (5) Increased ammonia level Status: Acute Current Visit: Yes (6) Methamphetamine abuse Status: Acute Current Visit: Yes Hospitalist: Subjective Interval history: No acute events overnight. Patient still intubated and sedated. Pulmonary assisting. Bronch today. Blood culture 1/2 with gram positive cocci. MRSA PCR positive. Will add vancomycin. Continue zosyn and levaquin. Repeat blood cultures. Sodium increasing, increase free water flushes. Exam - Constitutional Vitals: Period Temp Pulse Resp BP Sys/Raman Pulse Ox Last 24 Hr 97.4 F-98.5 F 14-121 10-25 91-124/61-90 94-100 General appearance: over weight - Head Head exam: Present: normocephalic, atraumatic - Eye Eye exam: Present: EOMI Pupils: Present: JENNIFFER - ENT ENT exam: Present: normal exam - Neck Neck exam: Present: normal inspection - Respiratory Respiratory exam: Present: clear to auscultation bilaterally. Absent: wheezes - Cardiovascular Cardiovascular exam: Present: regular rate and rhythm - GI/Abdominal GI/Abdominal exam: Present: normal bowel sounds, soft. Absent: tenderness, rebound - Extremities Exam Extremities exam: Present: normal inspection - Back Exam Back exam: Present: normal inspection - Skin Skin exam: Present: warm, intact Results - Labs CBC & BMP: 01/09/17 05:14 01/09/17 05:14
[2017-01-09] MEDS: VANCOMYCIN INJ 1,500 MG in SODIUM CHLORIDE 0.9% 500 ML IV SCH (15:59)
[2017-01-09] MEDS: MIDAZOLAM 100 MG in SODIUM CHLORIDE 0.9% 80 ML IV SCH (17:36)
[2017-01-09] MEDS: INSULIN REGULAR 100 UNIT/ML SUBCUT SCH (18:10)
[2017-01-10] MEDS: INSULIN REGULAR 100 UNIT/ML SUBCUT SCH ×4 (00:46→18:24)
[2017-01-10] MEDS: AMPICILLIN/SULBACTAM 1,500 MG in SODIUM CHLORIDE 0.9% 100 ML IV SCH ×4 (03:07→22:04)
[2017-01-10] MEDS: SILVER SULFADIAZINE 1% CREAM 25 GM TUBE TOP SCH ×2 (03:44→09:22)
[2017-01-10] MEDS: PROPOFOL 1,000 MG/100 ML BOTTLE IV SCH ×2 (04:32→21:27)
[2017-01-10 04:37] LABS: ABG Base Excess 2.7 MMOL/L (-2.5-2.5); ABG HCO3 27.8 MMOL/L (20-26); ABG Oxygen Saturation 97.6 % (95-100); ABG PCO2 44.1 MM HG (35-48); ABG PH 7.417 (7.35-7.45); ABG PO2 98.9 MM HG (80-95); ABG TCO2 29.1 MMOL/L (23-27); Allen Test Positive; Pt O2 Delivery Device Ventilator
[2017-01-10] MEDS: VANCOMYCIN INJ 1,500 MG in SODIUM CHLORIDE 0.9% 500 ML IV SCH ×2 (04:45→16:32)
[2017-01-10 05:38] LABS: Basophils % 0.1 % (0.0-0.8); Hematocrit 41.6 VOL% (42.0-52.0); Immature Granulocytes % 0.6 %; Immature Granulocytes Absolute 0.08 #; Lymphocytes # 0.5 10*3/uL (1.4-4.0); Lymphocytes % 3.5 % (21.2-54.2); Mean Corpuscular HGB Conc 33.7 GM/DL (32-36); Mean Corpuscular Hemoglobin 30 PG (27-34); Mean Corpuscular Volume 89.3 FL (87-102); Mean Platelet Volume 13.5 FL (9.6-12.0); Monocytes # 0.7 10*3/uL (0.11-0.8); Monocytes % 4.9 % (1.7-12.7); Neutrophils # 12.8 10*3/uL (1.4-7.4); Neutrophils % 90.9 % (38.7-73.9); Platelet Count 107 T/CUMM (130-400); Red Blood Count 4.66 MC/CUMM (3.8-5.5); Red Cell Distribution Width 14.8 % (9.3-17.3); White Blood Count 14.1 T/CUMM (4-12)
[2017-01-10 06:10] LABS: Calcium 8.2 MG/DL (8.5-10.1); Magnesium 2.2 MG/DL (1.8-2.4); Osmolality,Calculated 293.6 MOS/KG (273-304); Potassium 3.7 MMOL/L (3.5-5.1)
[2017-01-10] MEDS: DEXTROSE 5% NACL 0.45% 1,000 ML IV SCH ×2 (06:27→14:41)
[2017-01-10 06:37] LABS: Lymphocytes 3 % (20-55); Platelet Estimate Decreased; Segmented Neutrophils 92 % (50-85); Total Cells Counted 100
[2017-01-10 06:38] LABS: Hypochromasia 2+
--- NOTE | 2017-01-10 06:42 | Pulmonology Progress Note ---
Pulmonary - PN: Subj Interval history: This 56-year-old man female with overdose apparently methamphetamine. His respiratory failure. Has a right-sided pneumonia felt to be due to aspiration. He is on Unasyn and vancomycin. He has 1 of 2 positive blood cultures for gram-positive cocci but no final identification on it yet. His ABGs are acceptable. He has not tolerated weaning trials at all. Presently he is on both Versed and propofol infusions. I will stop the Versed and we can use doses of propofol if needed. I will add morphine for synergy. Exam (Progress Note) - Constitutional Vitals: Period Temp Pulse Resp BP Sys/Raman Pulse Ox Last 24 Hr 97.2 F-99.7 F 87-116 13-29 91-156/62-97 95-98 Exam: Patient is sedated and unresponsive. Vital signs are normal. Pupils react to light. Orotracheal tube in place. Neck supple. Chest reveals a few rhonchi equal breath sounds is not tight. Heart rate is in the mid 80s and normal rhythm. Abdomen soft no masses bowel sounds present. Extremities no clubbing or cyanosis she does have a trace of peripheral edema. Results - Labs CBC & BMP: 01/10/17 04:43 01/10/17 04:43 Lab Results: I have reviewed the past 24 hour labs - Diagnostic Findings Procedure: Chest x-ray: image reviewed by me (ET tube good position. Bilateral infiltrates bilaterally but not severe.) Assessment and Plan (1) Respiratory failure Status: Acute Assessment and plan: ABGs are acceptable. Having sedation problems. Will try to stop Versed and use morphine instead. Start weaning trials if and when patient can be alert and calm. Current Visit: Yes (2) Severe sepsis with septic shock Status: Acute Assessment and plan: Continuing vancomycin and Unasyn. The only definite positive cultures or MRSA in his nasal cultures. We do not know the organism in his sputum or his blood as yet. Blood pressure stable at present Current Visit: Yes (3) Pneumonia Status: Acute Assessment and plan: Continuing antibiotics for apparent gram-negative pneumonia. This was felt to be due to aspiration. Unasyn gives with gram-negative coverage as well as anaerobes. Current Visit: Yes (4) Methamphetamine abuse Status: Acute Assessment and plan: Patient has a long history of this and had positive urine test for this. Current Visit: Yes
[2017-01-10] MEDS: POTASSIUM CHLORIDE 20 MEQ/15 ML UDCUP PER TUBE PRN (07:52)
--- NOTE | 2017-01-10 08:11 | XRay Report ---
XR chest 1V portable Indication: Intubation. Comparison: Chest x-ray 01/09/2017 Technique: Portable AP chest was performed. Findings: Study is underpenetrated. The thoracic vertebral bodies cannot be identified. Endotracheal tube is present with probably little change. Partially imaged NG tube is present. Heart size is grossly stable. Lung parenchyma suggests little change. Impression: 1. No adverse interval change in the chest given the difference in technique. 01/10/2017 8:09 AM PROCEDURE INTERPRETED AT [facility] DEPARTMENT OF RADIOLOGY Final Report Signed by: Dr. Mars Nieves
[2017-01-10] MEDS: DESITIN 4OZ/NYSTATIN 15 GRAM MIXTURE PASTE TOP SCH ×2 (09:21→21:28)
[2017-01-10] MEDS: POLYMYXIN/TRIMETHOPRIM OPH SOL 10 ML BOTTLE BOTH EYES SCH ×4 (09:21→21:27)
--- NOTE | 2017-01-10 09:36 | Hospitalist Progress Note ---
Assessment and Plan (1) Ventilator dependence Status: Acute Current Visit: Yes (2) Altered mental status Status: Acute Current Visit: Yes (3) Agitation Status: Acute Current Visit: Yes (4) Acute renal failure Status: Acute Current Visit: Yes (5) Increased ammonia level Status: Acute Current Visit: Yes (6) Methamphetamine abuse Status: Acute Current Visit: Yes Hospitalist: Subjective Interval history: No acute events overnight. Patient has not been tolerating tube feeds very well. Will restart at a low rate and obtain a kub. Problems with waking patient up. Pulmonary assisting. Holding versed. Exam - Constitutional Vitals: Period Temp Pulse Resp BP Sys/Raman Pulse Ox Last 24 Hr 97.2 F-99.7 F 87-116 12-29 96-156/65-97 95-99 General appearance: over weight - Head Head exam: Present: normocephalic, atraumatic - Eye Eye exam: Present: EOMI Pupils: Present: JENNIFFER - ENT ENT exam: Present: normal exam - Neck Neck exam: Present: normal inspection - Respiratory Respiratory exam: Present: clear to auscultation bilaterally. Absent: rhonchi, wheezes - Cardiovascular Cardiovascular exam: Present: regular rate and rhythm - GI/Abdominal GI/Abdominal exam: Present: normal bowel sounds, soft. Absent: tenderness, rebound - Extremities Exam Extremities exam: Present: normal inspection - Back Exam Back exam: Present: normal inspection - Neurological Exam Neurological exam: Present: other (unresponsive) - Skin Skin exam: Present: warm, intact Results - Labs CBC & BMP: 01/10/17 04:43 01/10/17 04:43
[2017-01-10] MEDS: MORPHINE 2 MG/1 ML SYRINGE IV PRN ×2 (09:59→22:05)
--- NOTE | 2017-01-10 10:23 | XRay Report ---
XR KUB Indication: Not tolerating tube feeds. Comparison: None. Technique: Supine AP image of the abdomen was obtained. Findings: NG tube is present within the gastric fundus. No specific abnormality of the bowel gas pattern is demonstrated. Degenerative changes in lumbar spine are present. Infectious process and/or atelectatic change within the left lung base and I excluded. Impression: 1. No specific abnormality of the bowel gas pattern is demonstrated. 2. Infectious process and/or atelectatic change within the left lung base not excluded. In part this is influenced by cardiac silhouette over shadowing region. 01/10/2017 10:20 AM PROCEDURE INTERPRETED AT [facility] DEPARTMENT OF RADIOLOGY Final Report Signed by: Dr. Mars Nieves
[2017-01-10] MEDS: LABETALOL 20 MG/4 ML SYRINGE IV PRN (10:27)
[2017-01-10] MEDS: methylPREDNISolone SOD SUC 40 MG/1 ML VIAL IV SCH ×2 (10:30→22:05)
[2017-01-10] MEDS: LEVOFLOXACIN INJ 500 MG in PREMIX 1 EACH IV SCH (10:33)
[2017-01-10] MEDS: THIAMINE INJ 100 MG, FOLIC ACID INJ 1 MG, MULTIVITAMIN INJ 10 ML in SODIUM CHLORIDE 0.9... IV SCH (10:39)
[2017-01-10] MEDS: ENOXAPARIN 40 MG/0.4 ML SYRINGE SUBCUT SCH (13:08)
[2017-01-11] MEDS: DEXTROSE 5% NACL 0.45% 1,000 ML IV SCH ×5 (00:30→23:34)
[2017-01-11] MEDS: INSULIN REGULAR 100 UNIT/ML SUBCUT SCH ×4 (00:31→17:49)
[2017-01-11] MEDS: MORPHINE 2 MG/1 ML SYRINGE IV PRN ×5 (00:38→17:54)
[2017-01-11] MEDS: LABETALOL 20 MG/4 ML SYRINGE IV PRN ×2 (02:59→14:34)
[2017-01-11 03:47] LABS: ABG Base Excess 3.5 MMOL/L (-2.5-2.5); ABG HCO3 28.4 MMOL/L (20-26); ABG Oxygen Saturation 98.9 % (95-100); ABG PCO2 44.1 MM HG (35-48); ABG PH 7.427 (7.35-7.45); ABG PO2 183.3 MM HG (80-95); ABG TCO2 29.8 MMOL/L (23-27); Allen Test Positive; Pt O2 Delivery Device Ventilator
[2017-01-11] MEDS: VANCOMYCIN INJ 1,500 MG in SODIUM CHLORIDE 0.9% 500 ML IV SCH ×2 (04:07→16:17)
[2017-01-11] MEDS: AMPICILLIN/SULBACTAM 1,500 MG in SODIUM CHLORIDE 0.9% 100 ML IV SCH ×4 (04:07→23:26)
[2017-01-11 05:13] LABS: Basophils % 0.2 % (0.0-0.8); Hematocrit 40.3 VOL% (42.0-52.0); Hemoglobin 13.6 GM/DL (14.0-18.0); Immature Granulocytes % 1.3 %; Immature Granulocytes Absolute 0.16 #; Lymphocytes # 0.6 10*3/uL (1.4-4.0); Lymphocytes % 4.9 % (21.2-54.2); Mean Corpuscular HGB Conc 33.7 GM/DL (32-36); Mean Corpuscular Hemoglobin 30 PG (27-34); Mean Corpuscular Volume 88.2 FL (87-102); Mean Platelet Volume 12.7 FL (9.6-12.0); Monocytes # 0.8 10*3/uL (0.11-0.8); Monocytes % 6.3 % (1.7-12.7); NRBC # 0.02 10*3/uL; Neutrophils # 10.9 10*3/uL (1.4-7.4); Neutrophils % 87.3 % (38.7-73.9); Platelet Count 141 T/CUMM (130-400); Red Blood Count 4.57 MC/CUMM (3.8-5.5); Red Cell Distribution Width 14.5 % (9.3-17.3); White Blood Count 12.5 T/CUMM (4-12)
[2017-01-11 05:40] LABS: Band Neutrophils 2 % (0-10); Lymphocytes 5 % (20-55); Segmented Neutrophils 90 % (50-85)
[2017-01-11 05:41] LABS: Platelet Estimate Normal
[2017-01-11 05:42] LABS: Total Cells Counted 100
[2017-01-11 05:47] LABS: Magnesium 2.3 MG/DL (1.8-2.4); Osmolality,Calculated 297.6 MOS/KG (273-304); Potassium 3.9 MMOL/L (3.5-5.1)
[2017-01-11] MEDS: POTASSIUM CHLORIDE 20 MEQ/15 ML UDCUP PER TUBE PRN (06:15)
--- NOTE | 2017-01-11 07:20 | Pulmonology Progress Note ---
Pulmonary - PN: Subj Interval history: This 56-year-old man female with overdose apparently methamphetamine. His respiratory failure. Has a right-sided pneumonia felt to be due to aspiration. He is on Unasyn and vancomycin. He has 1 of 2 positive blood cultures for gram-positive cocci but no final identification on it yet. His ABGs are acceptable. He has not tolerated weaning trials at all. Presently he is on both Versed and propofol infusions. I will stop the Versed and we can use doses of propofol if needed. I will add morphine for synergy. 01/11/2017 patient is making slow progress with weaning trials. His x-ray is clear. I am told that he is responsive when sedation is off. He was sedated when I saw him this morning. Exam (Progress Note) - Constitutional Vitals: Period Temp Pulse Resp BP Sys/Raman Pulse Ox Last 24 Hr 97.0 F-99.1 F 80-105 12-30 122-193/74-109 97-100 Exam: Patient is sedated. Vital signs are normal. Pupils react to light. Orotracheal tube in place. Neck supple. Chest reveals a few rhonchi equal breath sounds is not tight. Heart rate is in the mid 80s and normal rhythm. Abdomen soft no masses bowel sounds present. Extremities no clubbing or cyanosis she does have a trace of peripheral edema. Results - Labs CBC & BMP: 01/11/17 04:44 01/11/17 04:44 Lab Results: I have reviewed the past 24 hour labs - Diagnostic Findings Procedure: Chest x-ray: image reviewed by me (ET tube good position. Lungs essentially clear.) Assessment and Plan (1) Respiratory failure Status: Acute Assessment and plan: ABGs are acceptable. Having sedation problems. Will try to stop Versed and use morphine instead. Start weaning trials if and when patient can be alert and calm. 01/11/2017 progressing with weaning trials. His PO2 is 183. Will reduce FiO2. Current Visit: Yes (2) Severe sepsis with septic shock Status: Acute Assessment and plan: Continuing vancomycin and Unasyn. The only definite positive cultures or MRSA in his nasal cultures. We do not know the organism in his sputum or his blood as yet. Blood pressure stable at present 01/11/2017 presently not in shock. Continuing antibiotics. Renal function intact. Current Visit: Yes (3) Pneumonia Status: Acute Assessment and plan: Continuing antibiotics for apparent gram-negative pneumonia. This was felt to be due to aspiration. Unasyn gives with gram-negative coverage as well as anaerobes. 01/11/2017 chest x-ray looks better. Current Visit: Yes (4) Methamphetamine abuse Status: Acute Assessment and plan: Patient has a long history of this and had positive urine test for this. Current Visit: Yes
--- NOTE | 2017-01-11 08:46 | XRay Report ---
XR chest 1V portable Indication: Intubation Comparison: Chest x-ray 01/10/2017 Technique: Portable AP chest was performed. Findings: Perihilar stranding compatible with pulmonary vascular congestive changes as well as mild edema remain present with little change since comparison. Multiple tubes and medical support devices appear stable. Impression: 1. Little change in the chest. 01/11/2017 8:43 AM PROCEDURE INTERPRETED AT [facility] DEPARTMENT OF RADIOLOGY Final Report Signed by: Dr. Mars Nieves
[2017-01-11] MEDS: POLYMYXIN/TRIMETHOPRIM OPH SOL 10 ML BOTTLE BOTH EYES SCH ×4 (09:16→20:32)
[2017-01-11] MEDS: DESITIN 4OZ/NYSTATIN 15 GRAM MIXTURE PASTE TOP SCH ×2 (09:17→20:33)
[2017-01-11] MEDS: SILVER SULFADIAZINE 1% CREAM 25 GM TUBE TOP SCH (09:19)
[2017-01-11] MEDS: THIAMINE INJ 100 MG, FOLIC ACID INJ 1 MG, MULTIVITAMIN INJ 10 ML in SODIUM CHLORIDE 0.9... IV SCH (09:22)
[2017-01-11] MEDS: methylPREDNISolone SOD SUC 40 MG/1 ML VIAL IV SCH ×2 (11:24→23:26)
[2017-01-11] MEDS: LEVOFLOXACIN INJ 500 MG in PREMIX 1 EACH IV SCH (11:30)
--- NOTE | 2017-01-11 11:57 | Hospitalist Progress Note ---
Assessment and Plan (1) Ventilator dependence Status: Acute Current Visit: Yes (2) Altered mental status Status: Acute Current Visit: Yes (3) Agitation Status: Acute Current Visit: Yes (4) Acute renal failure Status: Acute Current Visit: Yes (5) Increased ammonia level Status: Acute Current Visit: Yes (6) Methamphetamine abuse Status: Acute Current Visit: Yes Hospitalist: Subjective Interval history: No acute events overnight. Will wake up off sedation but does not follow commands. Pulmonary assisting with vent weaning. Exam - Constitutional Vitals: Period Temp Pulse Resp BP Sys/Raman Pulse Ox Last 24 Hr 97.6 F-99.1 F 84-105 13-30 133-193/73-102 97-100 General appearance: over weight - Head Head exam: Present: normocephalic, atraumatic - Eye Eye exam: Present: EOMI Pupils: Present: JENNIFFER - ENT ENT exam: Present: normal exam - Neck Neck exam: Present: normal inspection - Respiratory Respiratory exam: Present: clear to auscultation bilaterally. Absent: wheezes - Cardiovascular Cardiovascular exam: Present: regular rate and rhythm - GI/Abdominal GI/Abdominal exam: Present: normal bowel sounds, soft - Extremities Exam Extremities exam: Present: normal inspection - Back Exam Back exam: Present: normal inspection - Psychiatric Psychiatric exam: Present: agitated - Skin Skin exam: Present: warm, intact Results - Labs CBC & BMP: 01/11/17 04:44 01/11/17 04:44
[2017-01-11] MEDS: ENOXAPARIN 40 MG/0.4 ML SYRINGE SUBCUT SCH (12:49)
[2017-01-11] MEDS: HYDROmorphone 2 MG/1 ML VIAL IV PRN (19:31)
[2017-01-11] MEDS: PROPOFOL 1,000 MG/100 ML BOTTLE IV SCH (19:40)
[2017-01-11 22:44] LABS: Calcium 7.8 MG/DL (8.5-10.1); Magnesium 2.1 MG/DL (1.8-2.4); Osmolality,Calculated 298.4 MOS/KG (273-304); Potassium 4.3 MMOL/L (3.5-5.1)
[2017-01-12] MEDS: INSULIN REGULAR 100 UNIT/ML SUBCUT SCH ×4 (00:35→18:20)
[2017-01-12] MEDS: HYDROmorphone 2 MG/1 ML VIAL IV PRN ×5 (02:13→20:11)
[2017-01-12 03:19] LABS: Basophils # 0.1 10*3/uL (0.0-0.2); Basophils % 0.3 % (0.0-0.8); Hematocrit 42.9 VOL% (42.0-52.0); Hemoglobin 13.6 GM/DL (14.0-18.0); Immature Granulocytes % 1.7 %; Immature Granulocytes Absolute 0.25 #; Lymphocytes # 0.6 10*3/uL (1.4-4.0); Lymphocytes % 4.1 % (21.2-54.2); Mean Corpuscular HGB Conc 31.7 GM/DL (32-36); Mean Corpuscular Hemoglobin 30 PG (27-34); Mean Corpuscular Volume 94.1 FL (87-102); Mean Platelet Volume 12.9 FL (9.6-12.0); Monocytes % 6.7 % (1.7-12.7); Neutrophils # 13.1 10*3/uL (1.4-7.4); Neutrophils % 87.2 % (38.7-73.9); Platelet Count 144 T/CUMM (130-400); Red Blood Count 4.56 MC/CUMM (3.8-5.5); Red Cell Distribution Width 14.8 % (9.3-17.3)
[2017-01-12] MEDS: LABETALOL 20 MG/4 ML SYRINGE IV PRN (03:39)
[2017-01-12] MEDS: AMPICILLIN/SULBACTAM 1,500 MG in SODIUM CHLORIDE 0.9% 100 ML IV SCH ×2 (03:39→09:52)
[2017-01-12] MEDS: VANCOMYCIN INJ 1,500 MG in SODIUM CHLORIDE 0.9% 500 ML IV SCH (03:39)
[2017-01-12 03:45] LABS: Magnesium 2.2 MG/DL (1.8-2.4); Osmolality,Calculated 299.6 MOS/KG (273-304); Potassium 4.7 MMOL/L (3.5-5.1)
[2017-01-12 04:26] LABS: Allen Test Positive; Pt O2 Delivery Device Ventilator
[2017-01-12 04:34] LABS: Band Neutrophils 2 % (0-10); Lymphocytes 6 % (20-55); Metamyelocytes 1 %; Myelocytes 1 %; Platelet Estimate Normal; Segmented Neutrophils 90 % (50-85); Total Cells Counted 100
[2017-01-12 04:52] LABS: ABG Base Excess 2.4 MMOL/L (-2.5-2.5); ABG HCO3 28.4 MMOL/L (20-26); ABG PCO2 49.4 MM HG (35-48); ABG PH 7.378 (7.35-7.45); ABG PO2 203.8 MM HG (80-95)
[2017-01-12] MEDS: DEXTROSE 5% NACL 0.45% 1,000 ML IV SCH ×4 (05:58→23:07)
[2017-01-12] MEDS: hydrALAZINE 20 MG/1 ML VIAL IV PRN (05:59)
--- NOTE | 2017-01-12 06:02 | EKG Report ---
Stationary ECG Study [facility] Test Date: 01/11/2017 9:36:49 PM Pat Name: SRINIVASA AGUIRRE Department: Room: 118 Gender: M Medical Office Coordinator: : 1960 Requested by: Kareem Horton Order Number: [id number] [place] MD: ADARSH TILLEY Intervals [place] Rate: 80 P: 80 ID: [id number] QRS: 64 QRSD: 84 T: 62 QT: 375 QTc: 411 Interpretive Statements SINUS RHYTHM WITH SINUS ARRHYTHMIA LOW QRS VOLTAGE IN PRECORDIAL LEADS Electronically Signed On 01-12-17 07:04:04 CDT by ADARSH TILLEY [email or web address]
--- NOTE | 2017-01-12 07:26 | XRay Report ---
Referring Physician: Isaias Lagos Exam: XR chest 1V portable Date: January 12, 2017 at 3:04 AM Reason: Ventilation Comparison: Chest one view portable January 11, 2017 Findings: An endotracheal tube and feeding tube are again in place. The cardiac silhouette is again enlarged. There are scattered opacities within both lungs, mainly at the lung bases. This likely represents pulmonary edema and atelectasis. Pneumonia is felt less likely but is not excluded. No pneumothorax is identified, but there is minimal bilateral pleural fluid. The osseous structures appear stable. Impression: There has been no significant change. PROCEDURE INTERPRETED AT [facility] ([facility]) DEPARTMENT OF RADIOLOGY Final Report Signed by: Dr. Garo Quinn
[2017-01-12] MEDS: SILVER SULFADIAZINE 1% CREAM 25 GM TUBE TOP SCH (09:15)
[2017-01-12] MEDS: POLYMYXIN/TRIMETHOPRIM OPH SOL 10 ML BOTTLE BOTH EYES SCH ×4 (09:15→21:24)
[2017-01-12] MEDS: DESITIN 4OZ/NYSTATIN 15 GRAM MIXTURE PASTE TOP SCH ×2 (09:16→21:24)
[2017-01-12] MEDS: THIAMINE INJ 100 MG, FOLIC ACID INJ 1 MG, MULTIVITAMIN INJ 10 ML in SODIUM CHLORIDE 0.9... IV SCH (09:49)
--- NOTE | 2017-01-12 10:23 | Pulmonology Progress Note ---
Pulmonary - PN: Subj Interval history: This is a 56-year-old white male whom I saw in pulmonary consultation on 2016. My impressions were. 1. Altered mental status resulting in multiple self-inflicted injuries and requiring intubation to protect airways and sedation to protect the patient. 2. Multiple skin injuries all 4 extremities. 3. Disability. Reasons unknown. 4. Probable chronic pain based on records available to us. 5. Drug overdose with toxicology positive for amphetamines/methamphetamine. Consider the possibility of other drugs. 6. Since my initial visit chart notes from the nurse says that sister who lives out of town his call. She says she is the only family member that still tries to help him. She says she has had problems with drugs since age 16. He is been in and out of the [facility] in the past. His sister says he is currently on probation she is currently reporting to his poor role officer. See nurse's notes for more complete information. 01/09/2017. This patient is sedated. He is on the weaning protocol. His x-ray showed right middle lung right lower lung and left lower lung atelectasis. He was evaluated with fiberoptic bronchoscopy this morning. He had retained pulmonary secretions and he had gastric contents bilaterally. This was extensive. Specimens were sent for cytology, bacterial and fungal studies. He tolerated procedure well. Follow-up chest x-ray is pending. This patient has a gram-positive cocci growing from blood cultures. His previous sputum's have shown a gram-negative gab and gram-positive cocci. This patient is on Zosyn. His renal failure has resolved. I will add Levaquin 500 mg IV piggyback once a day until we see what the cultures and sensitivities are. His admit creatinine was 2.90 and is now dropped to 0.80. Admit white blood cell count was 34,500 and it has now dropped 18,003. H&H and platelets are stable. With aspiration injury am going to cover this patient with Solu-Medrol 40 IV push twice a day. His ABGs on mechanical ventilation PEEP of 5 and FiO2 50% shows a pH 7.39, PCO2 of 46, PO2 of 89 and a bicarb of 26.1. Note the sodium is 152 with a potassium of 3.6. Transaminases are elevated. Creatinine was 5092 and has dropped to 3864 01/12/2017. This patient is on stage IV to weaning protocol. ABGs are remarkably better post fiberoptic bronchoscopy. This will be repeated tomorrow. This patient had significant aspiration. The patient has had blood cultures positive for staph aureus. Bronchoalveolar lavage grew Pseudomonas and Klebsiella. Previous sputum's have also grown staph aureus. Left eye is growing a gram-positive cocci. Right eye grew Streptococcus pneumoniae. Infectious disease has been consulted. White blood cell count is 15,000 with 87.2 segs. Chest x-ray cardiomegaly right perihilar fullness residual infiltrate in the medial basal segment of right lower lung. Endotracheal tube is in good position. Labs been reviewed. Medicines been reviewed. Physical exam. Vital signs. See below. Neurologic. Patient moves all fours. He is sedated. Staff says the patient has become cooperative Extremities and face and trunk show multiple abrasions which are being treated. Face is symmetrical. Lips and tongue are normal. Neck. No meningismus. Lymphatics. No submandibular cervical supraclavicular or epitrochlear adenopathy. Chest. Coarse large airway congestion. Bibasilar inspiratory squeaks. Heart. No gallop Abdomen. Rare bowel sounds. Lower extremities show some chronic venous stasis changes. The remainder the exam is noncontributory. Plan. 1. See my note 01/09/2017. Check blood cultures. On Zosyn. Add Levaquin. Check bronchoscopy specimens. Fiberoptic bronchoscopy Aspiration. Add Solu-Medrol. 2. Daily chest x-ray, ABGs and lab. 3. Mechanical ventilation. Weaning protocol 4. Physical therapy protocol while on mechanical ventilation. #5. 01/12/2017. See my note above. Fiberoptic bronchoscopy 01/13/2017. Exam (Progress Note) - Constitutional Vitals: Period Temp Pulse Resp BP Sys/Raman Pulse Ox Last 24 Hr 97.3 F-98.9 F 65-101 12-26 122-192/62-103 96-99 Results - Labs CBC & BMP: 01/12/17 03:11 01/12/17 03:11
[2017-01-12] MEDS: methylPREDNISolone SOD SUC 40 MG/1 ML VIAL IV SCH ×2 (10:41→23:08)
[2017-01-12] MEDS: LEVOFLOXACIN INJ 500 MG in PREMIX 1 EACH IV SCH (10:43)
[2017-01-12] MEDS ORDERED: AMPICILLIN/SULBACTAM 3,000 MG in SODIUM CHLORIDE 0.9% 100 ML IV SCH (12:00)
--- NOTE | 2017-01-12 12:02 | Infectious Disease Consult ---
Assessment and Plan (1) MSSA (methicillin susceptible Staphylococcus aureus) septicemia Status: Acute Assessment and plan: Most likely source is the multiple abrasions on his skin and he has cellulitis of the left hand. MSSA was isolated from his lungs as well but he does not have impressive pneumonia. Recommendations: 1. We can discontinue vancomycin since this is not MRSA 2. Increased dose of Unasyn to 3 g every 6 hours [we are giving Unasyn rather than ampicillin to cover anaerobes for probable aspiration pneumonia] 3. Follow-up results of repeat blood cultures which are negative to date 4. Do NOT place a PICC line until we finalize that his repeat blood cultures are negative 5. The patient is going to need IV antibiotic therapy for the staph aureus bloodstream infection for at least 4 weeks 6. Echocardiogram to ensure no endocarditis Thank you very much for the consult. Will follow. Current Visit: Yes (2) Altered mental status Status: Acute Assessment and plan: Likely due to intoxication from methamphetamine. Improving. Current Visit: Yes (3) Acute renal failure Status: Acute Assessment and plan: Renal function has not returned to normal. Antibiotic medication doses therefore increased. Current Visit: Yes (4) Pneumonia Status: Acute Assessment and plan: Aspiration pneumonia. Multiple organisms isolated but anaerobes likely also involved. Recommendations: 1. Agree with the use of Unasyn, dose increased for normal renal function 2. Increased dose of levofloxacin to 750 mg daily Current Visit: Yes (5) Methamphetamine abuse Status: Acute Current Visit: Yes History of Present Illness Chief complaint: Multiple positive cultures History of present illness: History obtained from chart review as patient is sedated on the vent. Mr. Espitia is a 56 year old male who abuses methamphetamine. He was found grumbling and a pool of muddy water knowing that his hands. He was brought to the hospital and confused combative state. He was hypothermic with a temperature of 104 and very tachycardic with a positive of 165 on admission. He was not hypotensive. Labs are significant for severe leukocytosis with white blood cell count of 35 and acute renal failure with creatinine of about 2.9. The patient was intubated for airway protection and admitted to the ICU. He has had several cultures come back positive including blood for staph aureus , and bronchoalveolar lavage specimen positive for Klebsiella and Pseudomonas. The patient is on vancomycin, Unasyn, levofloxacin. I am asked to advise further antibiotic care. Overall per his nurse the patient has improved since admission, sedation was stopped 2 days ago and he is following simple commands. He has not had any fever since after the first day of admission. He is also been doing okay with vent weaning trials. Of note during his bronchoscopy was found to have extensive retained secretions gastric and also some mud given the pool of muddy water he was found in. Home Medications Medication Instructions Recorded Confirmed Type Amitriptyline [Elavil] 25 mg PO BEDTIME 01/07/17 01/12/17 History Furosemide [Furosemide] 10 - 20 mg PO DAILY PRN 01/07/17 01/12/17 History Gabapentin [Gabapentin] 300 mg PO TID 01/07/17 01/12/17 History Indomethacin [Indomethacin Cap] 25 mg PO TID W/MEALS PRN 01/07/17 01/12/17 History Latanoprost [Latanoprost 0.005 % 1 drop BOTH EYES BEDTIME 01/07/17 01/12/17 History Oph Soln] Oxycodone HCl/Acetaminophen 1 tablet PO QID PRN 01/07/17 01/12/17 History [Oxycodone-Acetaminophen 10-325] tiZANidine [Zanaflex] 4 mg PO TID PRN 01/07/17 01/12/17 History Morphine ER Tab [Ms Contin] 15 mg PO BID 01/12/17 01/12/17 History metFORMIN [Glucophage] 500 mg PO TID W/MEALS 01/12/17 01/12/17 History Allergies Allergy/AdvReac Type Severity Reaction Status Date / Time No Known Allergies Allergy Verified 05/28/15 12:34 ROS unobtainable: due to endotracheal tube, due to mental status Medical,Surgical,& Family Hx - Social History Smoking Status: Unknown if ever smoked Frequency of Alcohol Use: Unknown Type of Drug Use: Unknown Infectious Disease Exam H&P - Constitutional Vitals: Vital Signs Temp Pulse Resp BP Pulse Ox 98.9 F 87 10 L 127/68 96 01/12/17 04:00 01/12/17 08:00 01/12/17 11:26 01/12/17 07:45 01/12/17 07:45 Intake and Output 01/11/17 01/12/17 01/12/17 23:59 07:59 15:59 Intake Total 2041.2 / 2041.2 2100 / 2100 900 / 900 Output Total 365 / 365 380 / 380 Balance 1676.2 / 1676.2 1720 / 1720 900 / 900 Intake: IV 1611.2 / 1611.2 1700 / 1700 900 / 900 Unasyn 1,500 mg In Ns 100 100 / 100 200 / 200 100 / 100 ml @ 200 mls/hr IV Q6H DI[facility] Rx#:[id number] [id number] 1/2Ns 1,000 ml @ 125 1000 / 1000 700 / 700 mls/hr IV .Q8H DIAN Rx#: [id number] Levaquin Inj 500 mg In 100 / 100 Premix 1 Each @ 100 mls/ hr IV Q24H [facility] Rx#: [id number] Vitamin B1 Inj 100 mg 1011.2 / 1011.2 Folic Acid Inj 5 mg/ml Multivitamin Inj 10 ml In Ns 1,000 ml @ 100 mls/hr IV Q24H [facility] Rx#: [id number] Vancomycin Inj 1,000 mg 500 / 500 500 / 500 In Ns 500 ml @ 250 mls/hr IV Q12H [facility] Rx#: [id number] Tube Feeding Flush 430 / 430 400 / 400 Output: Urine 365 / 365 380 / 380 Other: Tube Feeding 10 10 Voiding Method Indwelling Catheter Indwelling Catheter # Voids 0 # Bowel Movements 0 0 Weight 97.296 kg Patient Weight 01/12/17 23:59 Weight 97.296 kg Exam: General: Patient drowsy but arousable HEENT: Mucous membranes pink and moist, anicteric acyanotic, JENNIFFER, ET tube in situ Neck: Supple, no thyroid gland enlargement, no lymphadenopathy Respiratory system: Breath sounds vesicular, no crepitations or wheezes heard Cardiovascular: Normal S1 and S2, no murmurs appreciated Abdomen: Normal bowel sounds, soft nontender throughout, no organomegaly or mass Genitourinary: No suprapubic pain or bladder distention, clear urine from Wray catheter Extremities: Generalized edema, he is on a cyclic Skin: No rash but he has scratch patel and excoriations scattered all over his body including on his feet and toes, he has shallow ulcerations to the dorsum of both hands where he was apparently knowing at himself. There is mild erythema and hyperemia of the dorsum of the left hand. Reports - Labs CBC & BMP: 01/12/17 03:11 01/12/17 03:11 Labs: Laboratory Results - last 24 hr 01/11/17 01/11/17 01/11/17 11:59 14:59 17:40 WBC RBC Hgb Hct MCV MCH MCHC RDW Plt Count MPV Neut % (Auto) Lymph % (Auto) Parker % (Auto) Eos % (Auto) Baso % (Auto) Neut # (Auto) Lymph # (Auto) Parker # (Auto) Eos # (Auto) Baso # (Auto) Total Counted Immature Gran % Nucleated RBC % Immature Gran # Segmented Neutrophils Band Neutrophils Lymphocytes Metamyelocytes Myelocytes Nucleated RBCs # Platelet Estimate Pappenheimer Bodies ABG pH ABG pCO2 ABG pO2 ABG HCO3 ABG Total CO2 ABG O2 Saturation ABG Base Excess FiO2 Sodium Potassium Chloride Carbon Dioxide Anion Gap BUN Creatinine GFR Calculation BUN/Creatinine Ratio Glucose POC Glucose 194 H 185 H Calculated Osmolality Calcium Magnesium Vancomycin Trough 10.8 01/11/17 01/12/17 01/12/17 22:02 00:28 03:11 WBC 15.0 H RBC 4.56 Hgb 13.6 L Hct 42.9 MCV 94.1 MCH 30 MCHC 31.7 L RDW 14.8 Plt Count 144 MPV 12.9 H Neut % (Auto) 87.2 H Lymph % (Auto) 4.1 L Parker % (Auto) 6.7 Eos % (Auto) 0.0 Baso % (Auto) 0.3 Neut # (Auto) 13.1 H Lymph # (Auto) 0.6 L Parker # (Auto) 1.0 H Eos # (Auto) 0.0 Baso # (Auto) 0.1 Total Counted 100 Immature Gran % 1.7 Nucleated RBC % 0.0 Immature Gran # 0.25 Segmented Neutrophils 90 H Band Neutrophils 2 Lymphocytes 6 L Metamyelocytes 1 Myelocytes 1 Nucleated RBCs # 0.00 Platelet Estimate Normal Pappenheimer Bodies Fisher Clam ABG pH ABG pCO2 ABG pO2 ABG HCO3 ABG Total CO2 ABG O2 Saturation ABG Base Excess FiO2 Sodium 147 H Potassium 4.3 Chloride 112 H Carbon Dioxide 30 Anion Gap 9.3 BUN 13 Creatinine 0.50 L GFR Calculation 150 BUN/Creatinine Ratio 26.00 H Glucose 225 H POC Glucose 235 H Calculated Osmolality 298.4 Calcium 7.8 L Magnesium 2.1 Vancomycin Trough 01/12/17 01/12/17 01/12/17 03:11 03:14 06:16 WBC RBC Hgb Hct MCV MCH MCHC RDW Plt Count MPV Neut % (Auto) Lymph % (Auto) Parker % (Auto) Eos % (Auto) Baso % (Auto) Neut # (Auto) Lymph # (Auto) Parker # (Auto) Eos # (Auto) Baso # (Auto) Total Counted Immature Gran % Nucleated RBC % Immature Gran # Segmented Neutrophils Band Neutrophils Lymphocytes Metamyelocytes Myelocytes Nucleated RBCs # Platelet Estimate Pappenheimer Bodies ABG pH 7.378 ABG pCO2 49.4 H ABG pO2 203.8 H ABG HCO3 28.4 H ABG Total CO2 30.0 H ABG O2 Saturation 99.0 ABG Base Excess 2.4 FiO2 50.00 Sodium 146 H Potassium 4.7 Chloride 111 H Carbon Dioxide 27 Anion Gap 12.7 BUN 14 Creatinine 0.70 GFR Calculation 131 BUN/Creatinine Ratio 20.00 Glucose 257 H POC Glucose 231 H Calculated Osmolality 299.6 Calcium 8.0 L Magnesium 2.2 Vancomycin Trough - Reports Microbiology: Microbiology 01/08/17 12:05 Eye Culture - Final Eye - Right Streptococcus pneumoniae 01/08/17 11:10 Sputum Culture - Final Sputum Klebsiella pneumoniae Staphylococcus aureus Gram Stain - Final 01/09/17 Unknown Fungal Smear - Final Bronchial Sb Lavage No fungal elements seen 01/09/17 Unknown Bronchoalveolar Lavage Culture - Final Bronchial Sb Lavage Pseudomonas aeruginosa Klebsiella oxytoca Gram Stain - Final - Diagnostic Findings Procedure: Chest x-ray: image reviewed by me, report reviewed by me (Clear on admission but today's film shows mild bibasilar opacities)
[2017-01-12] MEDS: LEVOFLOXACIN INJ 750 MG in PREMIX 1 EACH IV SCH (12:25)
[2017-01-12 13:04] LABS: HIV Antigen/Antibody Result Nonreactive (Nonreactive)
[2017-01-12] MEDS: ENOXAPARIN 40 MG/0.4 ML SYRINGE SUBCUT SCH (13:31)
--- NOTE | 2017-01-12 14:30 | Hospitalist Progress Note ---
Assessment and Plan (1) Ventilator dependence Status: Acute Assessment and plan: Pulmonary managing Bronch tomorrow Current Visit: Yes (2) Altered mental status Status: Acute Assessment and plan: Patient will wake up and follow commands now Current Visit: Yes (3) Agitation Status: Acute Assessment and plan: Improving Current Visit: Yes (4) Acute renal failure Status: Resolved Assessment and plan: Improved with IV hydration Current Visit: Yes (5) Increased ammonia level Status: Resolved Current Visit: Yes (6) Methamphetamine abuse Status: Acute Current Visit: Yes (7) Conjunctivitis Status: Acute Assessment and plan: On admission, pus noted in eyes Polymixon Current Visit: Yes (8) Pneumonia Status: Acute Assessment and plan: Bronchial Lavage with Pseudomonas aeruginosa and Klebseilla oxytoca Current Visit: Yes (9) MSSA (methicillin susceptible Staphylococcus aureus) septicemia Status: Acute Assessment and plan: ID consulted Unasyn Echo pending Repeat blood cultures negative to date Current Visit: Yes Hospitalist: Subjective Interval history: No acute events overnight. Patient awake and following commands now. Blood culture grew MSSA. ID has already been consulted. Vancomycin discontinued. On unasyn and levaquin. Echo ordered to rule out endocarditis. Leukocytosis is up some today. Tolerating low dose tube feeds better, will attempt to increase. Plan is for bronch tomorrow. Exam - Constitutional Vitals: Period Temp Pulse Resp BP Sys/Raman Pulse Ox Last 24 Hr 97.3 F-98.9 F 65-95 10-25 122-192/62-100 96-99 General appearance: over weight - Head Head exam: Present: normocephalic - Eye Eye exam: Present: EOMI Pupils: Present: JENNIFFER - ENT ENT exam: Present: normal exam - Neck Neck exam: Present: normal inspection - Respiratory Respiratory exam: Present: clear to auscultation bilaterally. Absent: wheezes - Cardiovascular Cardiovascular exam: Present: regular rate and rhythm - GI/Abdominal GI/Abdominal exam: Present: normal bowel sounds, soft - Extremities Exam Extremities exam: Present: normal inspection - Back Exam Back exam: Present: normal inspection - Neurological Exam Neurological exam: Present: other (awake, follows commands) - Skin Skin exam: Present: warm, intact Results - Labs CBC & BMP: 01/12/17 03:11 01/12/17 03:11
[2017-01-12] MEDS: AMPICILLIN/SULBACTAM 3,000 MG in SODIUM CHLORIDE 0.9% 100 ML IV SCH ×2 (15:20→19:57)
--- NOTE | 2017-01-12 18:34 | General Surgery Consult Note ---
Assessment and Plan - Time spent with patient Time spent with patient: Less than 30 minutes (1) Skin abscess Status: Acute Assessment and plan: Right forearm superficial abscess in patient with too numerous to count multiple skin abrasions, pneumonia, MRSA bacteremia, and multiple comorbidities. At this point we favor just close observation with all his other medical problems. We can ultrasound this tomorrow if it looks like it is progressing. He does have a central line that is 5 days old and will soon need to be changed out, however it would be prudent to avoid a PICC line at this point, given this gentlemen's overall skin issues. We will follow with you, and plan to consider drainage of this area if deemed necessary. I doubt however , it will give us any uesful additional information, and he is currently being treated with multiple antibiotics. The other areas seem to be responding well to consistent good local care. Current Visit: Yes (2) Abscess of right arm Status: Acute Current Visit: Yes History of Present Illness Chief complaint: Possible abscess of the right medial forearm History of present illness: Mr. Espitia is a 56 year old male Home Medications Medication Instructions Recorded Confirmed Type Amitriptyline [Elavil] 25 mg PO BEDTIME 01/07/17 01/12/17 History Furosemide [Furosemide] 10 - 20 mg PO DAILY PRN 01/07/17 01/12/17 History Gabapentin [Gabapentin] 300 mg PO TID 01/07/17 01/12/17 History Indomethacin [Indomethacin Cap] 25 mg PO TID W/MEALS PRN 01/07/17 01/12/17 History Latanoprost [Latanoprost 0.005 % 1 drop BOTH EYES BEDTIME 01/07/17 01/12/17 History Oph Soln] Oxycodone HCl/Acetaminophen 1 tablet PO QID PRN 01/07/17 01/12/17 History [Oxycodone-Acetaminophen 10-325] tiZANidine [Zanaflex] 4 mg PO TID PRN 01/07/17 01/12/17 History Morphine ER Tab [Ms Contin] 15 mg PO BID 01/12/17 01/12/17 History metFORMIN [Glucophage] 500 mg PO TID W/MEALS 01/12/17 01/12/17 History Allergies Allergy/AdvReac Type Severity Reaction Status Date / Time No Known Allergies Allergy Verified 05/28/15 12:34 Medical,Surgical,& Family Hx - Social History Smoking Status: Unknown if ever smoked Frequency of Alcohol Use: Unknown Type of Drug Use: Unknown Exam - Constitutional Vitals: Period Temp Pulse Resp BP Sys/Raman Pulse Ox Last 24 Hr 97.7 F-98.9 F 65-92 9-22 107-192/62-100 96-99 General appearance: other (The patient is on the ventilator, but he is intermittently awake and somewhat uncooperative with the exam. He is restrained , and when his arm is released for my exam he does not follow commands.) - Head Head exam: Present: normocephalic, other (There are multiple abrasions about the scalp and face. These are in various degrees of healing. I see none with gross purulence at this time.) - ENT Mouth exam: Present: dry mucosa, oral lesion (He has some dry oral mucosa and superficial ulcerations about the endotracheal tube) - Neck Neck exam: Present: trachea midline, other (Endotracheal tube is in place.). Absent: lymphadenopathy - Respiratory Respiratory exam: Present: rales, rhonchi - Cardiovascular Cardiovascular exam: Present: RRR - GI/Abdominal GI/Abdominal exam: Present: distended, hypoactive bowel sounds. Absent: tenderness - Extremities Exam Extremities exam: Present: other (Right upper extremity the area of question is a firm indurated somewhat ecchymotic area on the medial aspect of the forearm. This is approximately 3-4 cm in length by 1 cm wide. It is not clearly fluctuant, however it is firm to touch. There is no adjacent erythema to suggest that there is cellulitis. He has too numerous to count smaller abrasions about the hands and arms. He has dressings over the right elbow in the right hand, when these are removed they reveal small superficial abrasions and skin excoriations. He has similar type lesions about the left hand and about both lower extremities. The left lower extremity tibial area has a very superficial abrasion that according to nurses has been present for some time. This is consistent with a superficial venous leg ulcer although it is quite unimpressive at this point. He has no lower leg edema and no chronic venous stasis skin changes.) - Skin Skin exam: Present: other (Area of normal skin exam. Numerous abrasions, contusions, and scabs in various levels of healing about the extremities and scalp. None of these are draining any purulent material however they are in various levels of healing.) Results - Labs CBC & BMP: 01/12/17 03:11 01/12/17 03:11 Lab Results: I have reviewed the past 24 hour labs
--- NOTE | 2017-01-12 19:13 | ECHO Report ---
Brandon Espitia Exam Date: 01/12/2017 13:44 Referring Physician: Technologist: Cheli Oliva RDCS Age: 56 Ht (in): 69 Wt (lb): 214 Gender: M Exam Location: [facility] Echo Indications: Acute kidney failure, unspecified, MSSA, AMS, pneumonia, Methamphetamine abuse BP: 122 / 62 HR: 86 Rhythm: Sinus Technical Quality: Technically difficult study IMPRESSIONS Normal LV systolic and diastolic function, ejection fraction 60%. Trace to mild tricuspid regurgitation. MEASUREMENTS (Male / Female) Normal Values 2D ECHO LV Diastolic Diameter PLAX 4.2 cm 4.2 - 5.9 / 3.9 - 5.3 cm LV Systolic Diameter PLAX 2.4 cm LV Fractional Shortening PLAX 43.1 % IVS Diastolic Thickness 0.7 cm 0.6 - 1.0 / 0.6 - 0.9 cm LVPW Diastolic Thickness 0.8 cm 0.6 - 1.0 / 0.6 - 0.9 cm RV Internal Dim ED PLAX 2.7 cm Aortic Root Diameter 2.1 cm LA Systolic Diameter LX 3.5 cm 3.0 - 4.0 / 2.7 - 3.8 cm DOPPLER TR Peak Velocity 323.0 cm/s TR Peak Gradient 41.7 mmHg FINDINGS Left Ventricle Normal left ventricular cavity size. Normal left ventricular wall thickness. Left ventricular ejection fraction is estimated at 60 %. Right Ventricle The right ventricle is normal in size and function. Right Atrium The right atrium is normal in size. Left Atrium The left atrium is normal in size. Mitral Valve Morphologically normal mitral valve without significant stenosis or prolapse. There is no mitral regurgitation. Aortic Valve Morphologically normal aortic valve without significant sclerosis or stenosis. There is no aortic regurgitation. Tricuspid Valve Morphologically normal tricuspid valve. Trace to mild tricuspid valve regurgitation. Tricuspid regurgitation velocities suggest a PAP of 52 mmHg. Pulmonic Valve Morphologically normal pulmonic valve without significant stenosis. There is no pulmonic regurgitation. Pericardium Normal pericardium without effusion. Aorta Normal ascending aorta dimension. Maggie Ordonez MD (Electronically Signed) Final Date: 12 Jan 2017 19:12
[2017-01-12] MEDS: PROPOFOL 1,000 MG/100 ML BOTTLE IV SCH (20:39)
[2017-01-13] MEDS: INSULIN REGULAR 100 UNIT/ML SUBCUT SCH ×5 (00:54→23:50)
[2017-01-13] MEDS: AMPICILLIN/SULBACTAM 3,000 MG in SODIUM CHLORIDE 0.9% 100 ML IV SCH ×4 (04:00→19:39)
[2017-01-13 04:52] LABS: ABG Base Excess 3.4 MMOL/L (-2.5-2.5); ABG HCO3 27.5 MMOL/L (20-26); ABG PCO2 48.3 MM HG (35-48); ABG PH 7.391 (7.35-7.45); ABG TCO2 25.5 MMOL/L (23-27); Allen Test Positive; Pt O2 Delivery Device Ventilator
[2017-01-13 06:00] LABS: Basophils % 0.2 % (0.0-0.8); Hematocrit 39.1 VOL% (42.0-52.0); Hemoglobin 12.8 GM/DL (14.0-18.0); Immature Granulocytes % 2.8 %; Immature Granulocytes Absolute 0.48 #; Lymphocytes # 0.5 10*3/uL (1.4-4.0); Lymphocytes % 3.1 % (21.2-54.2); Mean Corpuscular HGB Conc 32.7 GM/DL (32-36); Mean Corpuscular Hemoglobin 30 PG (27-34); Mean Corpuscular Volume 90.3 FL (87-102); Mean Platelet Volume 12.7 FL (9.6-12.0); Monocytes # 1.2 10*3/uL (0.11-0.8); Monocytes % 6.8 % (1.7-12.7); Neutrophils % 87.1 % (38.7-73.9); Platelet Count 182 T/CUMM (130-400); Red Blood Count 4.33 MC/CUMM (3.8-5.5); Red Cell Distribution Width 14.5 % (9.3-17.3); White Blood Count 17.3 T/CUMM (4-12)
[2017-01-13 06:09] LABS: INR 1.1; Partial Thromboplastin Time 26.4 SECS (0-40)
[2017-01-13 06:24] LABS: Band Neutrophils 1 % (0-10); Lymphocytes 4 % (20-55); Platelet Estimate Adequate; Segmented Neutrophils 90 % (50-85); Total Cells Counted 100
[2017-01-13 06:25] LABS: Hypochromasia 1+
[2017-01-13 06:37] LABS: Calcium 8.3 MG/DL (8.5-10.1); Magnesium 2.2 MG/DL (1.8-2.4); Osmolality,Calculated 298.4 MOS/KG (273-304)
[2017-01-13 06:42] LABS: Phosphorous 2.4 MG/DL (2.5-4.9); Prealbumin 13.6 MG/DL (20-40)
--- NOTE | 2017-01-13 07:17 | XRay Report ---
Referring Physician: Isaias Lagos Exam: XR chest 1V portable Date: January 13, 2017 at 2:54 AM Reason: Ventilation Comparison: Chest one view portable January 12, 2017 Findings: An endotracheal tube and feeding tube are again in place. The cardiac silhouette is again enlarged. There are scattered hazy opacities within both lungs, mainly at the lung bases. This likely represents pulmonary edema and atelectasis. Pneumonia is felt less likely but is not excluded. No pneumothorax is identified, but there is mild left pleural fluid and possible minimal right pleural fluid. The osseous structures appear stable. Impression: There has been no significant change. PROCEDURE INTERPRETED AT [facility] DEPARTMENT OF RADIOLOGY Final Report Signed by: Dr. Garo Quinn
[2017-01-13] MEDS: DEXTROSE 5% NACL 0.45% 1,000 ML IV SCH ×3 (07:21→23:47)
[2017-01-13] MEDS: PROPOFOL 1,000 MG/100 ML BOTTLE IV SCH ×6 (07:27→21:31)
--- NOTE | 2017-01-13 09:13 | Hospitalist Progress Note ---
Hospitalist: Subjective Interval history: Pt is prepped for central line. No fever. Plans for bronch today. No tolerating tubefeeds. Has been seen by surgery re: right arm fluid pocket and no intervention per surgery at this time. Exam - Constitutional Vitals: Period Temp Pulse Resp BP Sys/Raman Pulse Ox Last 24 Hr 97.1 F-99.2 F 72-109 9-31 107-187/56-111 96-99 Exam: Intubated, Sedated, NAD, prepped for central line placement RRR no M CTAB anteriorly with good aeration, nonlabored, on vent Soft, NT, ND, +BS Warm no c/c +trace edema Results - Labs CBC & BMP: 01/13/17 05:13 01/13/17 05:13 - Impressions (1) Ventilator dependence Status: Acute Assessment and plan: - Pulmonary managing. Wean as tolerated. - Bronch 01/13 Current Visit: Yes (2) Acute respiratory failure due to MSSA, Pseudomonas and Klebsiella pneumonia likely due to aspiration Status: Acute Assessment and plan: - Bronchial Lavage with Pseudomonas aeruginosa and Klebseilla oxytoca - Sputum culture MSSA and Pseudomonas - Cont IV antibiotics, vent support, IV steroids - Pulm following. Current Visit: Yes (3) Sepsis due to right forearm abscess with MSSA bacteremia and Streptococcus conjunctivitis and polymicrobial pneumonia -Surgery consulted with no plans for surgery at this time. -Cont IV Unasyn and Levaquin -Repeat blood culture 01/09 negative to date -Cont polymyxin B ophthalmologic ointment for conjunctivitis -ECHO showed EF 60% RSVP 52 without significant valvular disease noted. -HIV NR (4) Acute encephalopathy (metabolic and toxic)- resolved Status: Acute Assessment and plan: Reportedly, Patient will wake up and follow commands now Current Visit: Yes (5) Acute renal failure Status: Resolved Assessment and plan: Improved with IV hydration Current Visit: Yes (5) Increased ammonia level Status: Resolved Current Visit: Yes (6) Methamphetamine abuse Status: Acute Current Visit: Yes DVT prophylaxis - on Lovenox Pt is critically ill requiring vent support at this time. 42 minutes of time spent with this patient.
[2017-01-13] MEDS: LEVOFLOXACIN INJ 750 MG in PREMIX 1 EACH IV SCH (09:19)
[2017-01-13] MEDS: POLYMYXIN/TRIMETHOPRIM OPH SOL 10 ML BOTTLE BOTH EYES SCH ×4 (09:20→21:34)
[2017-01-13] MEDS: hydrALAZINE 20 MG/1 ML VIAL IV PRN ×2 (09:20→15:10)
[2017-01-13] MEDS: DESITIN 4OZ/NYSTATIN 15 GRAM MIXTURE PASTE TOP SCH ×2 (09:21→21:34)
[2017-01-13] MEDS: methylPREDNISolone SOD SUC 40 MG/1 ML VIAL IV SCH ×2 (09:36→23:14)
--- NOTE | 2017-01-13 09:38 | General Surgery Progress Note ---
Assessment and Plan - Time spent with patient Time spent with patient: Less than 30 minutes Subjective Patient reports: Present: other (Patient remains on the ventilator) Exam - Constitutional Vitals: Period Temp Pulse Resp BP Sys/Raman Pulse Ox Last 24 Hr 97.1 F-99.2 F 72-109 9-31 107-187/56-111 96-99 General appearance: mild distress - Head Head exam: Present: normal inspection - ENT ENT exam: Present: normal exam - Neck Neck exam: Present: normal inspection - Respiratory Respiratory exam: Present: rales, rhonchi - Cardiovascular Cardiovascular exam: Present: RRR - GI/Abdominal GI/Abdominal exam: Present: hypoactive bowel sounds, soft - Extremities Exam Extremities exam: Present: other (Most of wounds look clean and dry this point time. The indurated area on the forearm of the right forearm is still noted and its appearance is 1 of a possible IV sites are thrombosed vein in this area. ) - Back Exam Back exam: Present: normal inspection - Neurological Exam Neurological exam: Present: alert, oriented X3, CN II-XII intact - Skin Skin exam: Present: normal color, warm, dry Results - Labs CBC & BMP: 01/13/17 05:13 01/13/17 05:13 Lab Results: I have reviewed the past 24 hour labs
--- NOTE | 2017-01-13 09:39 | Infectious Disease Progress ---
Assessment and Plan (1) MSSA (methicillin susceptible Staphylococcus aureus) septicemia Status: Acute Assessment and plan: Most likely source is the multiple abrasions on his skin and he has cellulitis of the left hand. MSSA was isolated from his lungs as well but he does not have impressive pneumonia. Echo [TTE] without evidence of endocarditis. Recommendations: 1. Continue Unasyn 2. Follow-up repeat cultures 3. The patient is going to need IV antibiotic therapy for the staph aureus bloodstream infection for at least 4 weeks Current Visit: Yes (2) Altered mental status Status: Acute Assessment and plan: Likely due to intoxication from methamphetamine. Improving. Current Visit: Yes (3) Acute renal failure Status: Resolved Assessment and plan: Resolved Current Visit: Yes (4) Pneumonia Status: Acute Assessment and plan: Aspiration pneumonia. Multiple organisms isolated but anaerobes likely also involved. Recommendations: Continue Unasyn and levofloxacin Current Visit: Yes (5) Methamphetamine abuse Status: Acute Current Visit: Yes Infectious Disease - PN: Subj Interval history: Patient relatively stable, he is not having fever. He sedated this morning awaiting fiberoptic bronchoscopy. Infectious Disease Exam (PN) - Constitutional Vitals: Temp Pulse Resp BP Pulse Ox 99.2 F 81 12 178/101 99 01/13/17 08:00 01/13/17 09:00 01/13/17 09:22 01/13/17 09:00 01/13/17 09:00 General appearance: other (The patient is on the ventilator, but he is intermittently awake and somewhat uncooperative with the exam. He is restrained , and when his arm is released for my exam he does not follow commands.) Exam: General appearance: Sedated - Eye Eye exam: Present: EOMI. no icterus Pupils: Present: JENNIFFER - ENT ENT exam: ET tube in situ - Respiratory Respiratory exam: vesicular BS, no crepitations or wheezes - Cardiovascular Cardiovascular exam: regular rate and rhythm, no murmurs - GI/Abdominal GI/Abdominal exam: normal bowel sounds, soft, non-tender, no organomegaly or mass - Extremities Exam Extremities exam: Generalized the edema, still with excoriations all over body, shallow ulcerations dorsum of hands - Skin Skin exam: no rash Results - Labs CBC & BMP: 01/13/17 05:13 01/13/17 05:13 Lab Results: I have reviewed the past 24 hour labs
[2017-01-13] MEDS ORDERED: HEPARIN LOCK FLUSH 500 UNIT/5 ML SYRINGE IV ONE (09:40)
[2017-01-13] MEDS: THIAMINE INJ 100 MG, FOLIC ACID INJ 1 MG, MULTIVITAMIN INJ 10 ML in SODIUM CHLORIDE 0.9... IV SCH (09:41)
--- NOTE | 2017-01-13 10:07 | Event Note ---
In hospital diagnostic and therapeutic fiberoptic bronchoscopy with bilateral lavages from the right upper lung, right middle lung, right lower lung, left upper lung and left lower lung. Specimens were sent for Gram stain, bacterial cultures, fungal stains and cultures. This is a 56-year-old male with an ineffective cough he is on mechanical ventilation he has a right lower lung and left lower lung infiltrate with associated atelectasis. He has grown several organisms from previous bronchoscopy washings and also organisms from his blood. He is bronchoscope today to remove secretions. On his previous bronchoscopy it was noted that he had aspirated his gastric contents. He will also be recultured today. Endotracheal tube is in good position. The distal trachea is normal. The john is normal. The right mainstem bronchus contained copious thick and thin clear secretions that it extended into the right upper lung, right middle lung and right lower lung. These areas were all lavaged and suctioned until clear. There were no endobronchial lesions to suggest cancer. Lavage specimens were sent for the studies mentioned above. Left mainstem bronchus left upper lung and the left lower lung were full of thick tenacious and thin sputum that was mainly clear. Left upper lung and the left lower lung were lavaged and specimens were sent for the studies noted above. There were no endobronchial lesions to suggest cancer. The patient tolerated procedure well there were no complications. In both bronchial trees there were minor areas of erythema. There were no erosions. The initial gastric acid injuries were moderate and these appear to have resolved. Patient will continue to form a good bit of secretions secondary to this injury. Impression. 1. Respiratory failure requiring intubation mechanical ventilation 2. Ineffective cough 3. Retained secretions 4. Recent aspiration of gastric contents 5. Bibasal infiltrates compatible with pneumonia. Multiple organisms have been been grown from previous bronchoscopy. 6. Clinical improvement of gastric acid in the bronchial lesions. Plan. 1. Follow-up chest x-ray #2 check bronchoscopy specimens.
--- NOTE | 2017-01-13 10:15 | Pulmonology Progress Note ---
Pulmonary - PN: Subj Interval history: This is a 56-year-old white male whom I saw in pulmonary consultation on 2016. My impressions were. 1. Altered mental status resulting in multiple self-inflicted injuries and requiring intubation to protect airways and sedation to protect the patient. 2. Multiple skin injuries all 4 extremities. 3. Disability. Reasons unknown. 4. Probable chronic pain based on records available to us. 5. Drug overdose with toxicology positive for amphetamines/methamphetamine. Consider the possibility of other drugs. 6. Since my initial visit chart notes from the nurse says that sister who lives out of town his call. She says she is the only family member that still tries to help him. She says she has had problems with drugs since age 16. He is been in and out of the [facility] in the past. His sister says he is currently on probation she is currently reporting to his poor role officer. See nurse's notes for more complete information. 01/09/2017. This patient is sedated. He is on the weaning protocol. His x-ray showed right middle lung right lower lung and left lower lung atelectasis. He was evaluated with fiberoptic bronchoscopy this morning. He had retained pulmonary secretions and he had gastric contents bilaterally. This was extensive. Specimens were sent for cytology, bacterial and fungal studies. He tolerated procedure well. Follow-up chest x-ray is pending. This patient has a gram-positive cocci growing from blood cultures. His previous sputum's have shown a gram-negative gab and gram-positive cocci. This patient is on Zosyn. His renal failure has resolved. I will add Levaquin 500 mg IV piggyback once a day until we see what the cultures and sensitivities are. His admit creatinine was 2.90 and is now dropped to 0.80. Admit white blood cell count was 34,500 and it has now dropped 18,003. H&H and platelets are stable. With aspiration injury am going to cover this patient with Solu-Medrol 40 IV push twice a day. His ABGs on mechanical ventilation PEEP of 5 and FiO2 50% shows a pH 7.39, PCO2 of 46, PO2 of 89 and a bicarb of 26.1. Note the sodium is 152 with a potassium of 3.6. Transaminases are elevated. Creatinine was 5092 and has dropped to 3864 01/12/2017. This patient is on stage IV to weaning protocol. ABGs are remarkably better post fiberoptic bronchoscopy. This will be repeated tomorrow. This patient had significant aspiration. The patient has had blood cultures positive for staph aureus. Bronchoalveolar lavage grew Pseudomonas and Klebsiella. Previous sputum's have also grown staph aureus. Left eye is growing a gram-positive cocci. Right eye grew Streptococcus pneumoniae. Infectious disease has been consulted. White blood cell count is 15,000 with 87.2 segs. Chest x-ray cardiomegaly right perihilar fullness residual infiltrate in the medial basal segment of right lower lung. Endotracheal tube is in good position. 01/13/2017. Chest x-ray shows a small bibasilar infiltrates. Patient has positive cultures from previous bronchoscopies and he is being treated for this including positive blood cultures and positive cultures for other sites on his body including both eyes. Today he was reevaluated with bronchoscopy specimens were sent for Gram stain, bacterial culture, fungal stains and culture. Patient had a tremendous amount of retained secretion. I did not see any residual from his previous aspiration of gastric contents. Previously noted erythema and friability of the endobronchial new mucosa is completely resolved. Patient will have her continue to form a lot of secretions for quite some time secondary to this injury. Patient is on stage V of his weaning protocol. He also is on physical therapy protocol. I appreciate Dr. Reyes's infectious disease consultation. ABGs on mechanical ventilation with an FiO2 of 50% show a pH of 7.31, PCO2 48.3, PO2 of 129 and a bicarb of 27.5. White count is elevated 17,300 with 87 segs. H&H 12.8/39.1 and platelets are 182,000. Electrolytes are normal. Creatinine is 0.6 with a BUN of 17. HIV antigen and antibody are nonreactive. Labs been reviewed. Medicines been reviewed. Echocardiogram. 01/07/2017. Ejection fraction is 60%. Right atrium and right ventricle are normal in size. No mitral regurgitation. Aortic valve is normal. Tricuspid regurgitation is present. This suggests pulmonary artery pressures of 52 mmHg. Note that the patient is still 5 of PEEP and 10 of pressure support during the time the study was done. Physical exam. Vital signs. See below. Neurologic. Patient moves all fours. He is sedated. Staff says the patient has become cooperative Extremities and face and trunk show multiple abrasions which are being treated. Face is symmetrical. Lips and tongue are normal. Neck. No meningismus. Lymphatics. No submandibular cervical supraclavicular or epitrochlear adenopathy. Chest. Coarse large airway congestion. Bibasilar inspiratory squeaks. Heart. No gallop Abdomen. Rare bowel sounds. Lower extremities show some chronic venous stasis changes. The remainder the exam is noncontributory. Plan. 1. See my note 01/09/2017. Check blood cultures. On Zosyn. Add Levaquin. Check bronchoscopy specimens. Fiberoptic bronchoscopy Aspiration. Add Solu-Medrol. 2. Daily chest x-ray, ABGs and lab. 3. Mechanical ventilation. Weaning protocol 4. Physical therapy protocol while on mechanical ventilation. #5. 01/12/2017. See my note above. Fiberoptic bronchoscopy 01/13/2017. 6. 01/13/2017. See today's note above Exam (Progress Note) - Constitutional Vitals: Period Temp Pulse Resp BP Sys/Raman Pulse Ox Last 24 Hr 97.1 F-99.2 F 72-109 9-31 112-192/56-111 96-99 Results - Labs CBC & BMP: 01/13/17 05:13 01/13/17 05:13
--- NOTE | 2017-01-13 11:01 | Post Interventional Procedure ---
Pre-op diagnosis: IV access needed for medication administration Post-op diagnosis: same Procedure: Left IJ central line placement. Ultrasound guidance for vascular access Radiologist: Brenda Bettencourt Anesthesia: local Estimated blood loss: minimal (less than 5 ml) Complications: none Condition: stable Description/Findings: A time out was performed with verification of the patient's name, MRN, site of procedure, and type of procedure to be performed. The patient was positioned in the supine position on the ICU bed. The site was prepped and draped in the usual sterile fashion. The neck and anterior chest wall were anesthetized with lidocaine. The left internal jugular vein was accessed using angiocatheter via an anterior approach with ultrasound guidance. Ultrasound image capture of vascular access was obtained for the patient's permanent record. A 0.038" guidewire wire was advanced into the superior vena cava. The tract was serially dilated over the wire. A 12 [place]yan triple lumen 16 cm Arrow central venous catheter was placed with its tip at the junction of the left innominate vein and superior vena cava. Catheter position was documented using portable chest x-ray. The ports aspirate and flush freely. The catheter was sutured in place using 2-0 Prolene and covered with a sterile dressing. The patient tolerated the procedure well. EBL: < 5 mL. Complications: None. Impression: Successful placement of a triple lumen central venous catheter via the left internal jugular vein. The catheter is ready for immediate use Assessment and Plan - Time spent with patient Time spent with patient: Less than 30 minutes
--- NOTE | 2017-01-13 11:03 | Ultrasound Report ---
Referring Physician: Anson Lopez Exam: US right upper extremity nonvascular ultrasound Date: January 13, 2017 Reason: Right posterior forearm abscess Comparison: None Technique: Grayscale and color Doppler flow images of the right forearm were obtained. Ultrasound images were captured and stored. Findings: There is prominent edema at the right forearm. At the indicated area of concern at the mid right forearm, there is a 1.4 x 0.7 x 0.4 cm fluid collection within the subcutaneous tissues. This could represent an abscess. Other considerations include a hematoma. Impression: 1. There is prominent edema at the right forearm, which could be related to trauma or cellulitis. 2. A 1.4 x 0.7 x 0.4 cm fluid collection is seen within the subcutaneous tissue at the right mid forearm. This could represent an abscess. Other considerations include a subacute/remote hematoma. PROCEDURE INTERPRETED AT [facility] DEPARTMENT OF RADIOLOGY Final Report Signed by: Dr. Garo Quinn
--- NOTE | 2017-01-13 11:04 | Interventional Radiology Rpt ---
History: IV access needed for medication administration Date: 01/13/2017 Study: Left IJ central line placement. Ultrasound guidance for vascular access Comparison exam: Not applicable Physician[s]: Dr. Bettencourt Informed consent was obtained. A time out was performed with verification of the patient's name, MRN, site of procedure, and type of procedure to be performed. The patient was positioned in the supine position on the ICU bed. The site was prepped and draped in the usual sterile fashion. The neck and anterior chest wall were anesthetized with lidocaine. The left internal jugular vein was accessed using angiocatheter via an anterior approach with ultrasound guidance. Ultrasound image capture of vascular access was obtained for the patient's permanent record. A 0.038" guidewire wire was advanced into the superior vena cava. The tract was serially dilated over the wire. A 12 Guinean triple lumen 16 cm Arrow central venous catheter was placed with its tip at the junction of the left innominate vein and superior vena cava. Catheter position was documented using portable chest x-ray. The ports aspirate and flush freely. The catheter was sutured in place using 2-0 Prolene and covered with a sterile dressing. The patient tolerated the procedure well. EBL: < 5 mL. Complications: None. Impression: Successful placement of a triple lumen central venous catheter via the left internal jugular vein. The catheter is ready for immediate use. PROCEDURE INTERPRETED AT [facility] DEPARTMENT OF RADIOLOGY Final Report Signed by: Dr. Brenda Bettencourt
[2017-01-13] MEDS: ENOXAPARIN 40 MG/0.4 ML SYRINGE SUBCUT SCH (12:08)
--- NOTE | 2017-01-13 12:20 | XRay Report ---
History: Postop central line placement Date: 01/13/2017 at 10:19 AM Study: Chest x-ray post procedure Comparison exam: 01/13/2017 at 2:57 AM A left IJ central line is well positioned with its tip at the junction of the superior vena cava and left innominate vein. There is no pneumothorax. The endotracheal and nasogastric tubes remain in place. There is continued cardiomegaly. There is some continued patchy and hazy edema/infiltrate in the lung bases. The exam is otherwise unchanged. Impression: No evidence of a pneumothorax following placement of a left IJ central line PROCEDURE INTERPRETED AT [facility] DEPARTMENT OF RADIOLOGY Final Report Signed by: Dr. Brenda Bettencourt
[2017-01-13] MEDS: SILVER SULFADIAZINE 1% CREAM 25 GM TUBE TOP SCH (14:52)
[2017-01-13] MEDS ORDERED: SKIN HEALING OINT (AQUAPHOR) 50 GM TUBE TOP PRN (14:54)
[2017-01-13] MEDS: HYDROmorphone 2 MG/1 ML VIAL IV PRN (19:35)
[2017-01-14] MEDS: PROPOFOL 1,000 MG/100 ML BOTTLE IV SCH ×9 (00:01→23:42)
[2017-01-14] MEDS: AMPICILLIN/SULBACTAM 3,000 MG in SODIUM CHLORIDE 0.9% 100 ML IV SCH ×4 (03:30→21:33)
[2017-01-14 03:37] LABS: Allen Test Positive; Pt O2 Delivery Device Ventilator
[2017-01-14 03:39] LABS: ABG Base Excess 4.7 MMOL/L (-2.5-2.5); ABG HCO3 28.6 MMOL/L (20-26); ABG PCO2 49.9 MM HG (35-48); ABG PH 7.397 (7.35-7.45); ABG TCO2 26.7 MMOL/L (23-27)
[2017-01-14 04:44] LABS: Basophils % 0.2 % (0.0-0.8); Hematocrit 39.7 VOL% (42.0-52.0); Hemoglobin 13.4 GM/DL (14.0-18.0); Immature Granulocytes % 5.1 %; Immature Granulocytes Absolute 0.68 #; Lymphocytes # 0.5 10*3/uL (1.4-4.0); Lymphocytes % 3.4 % (21.2-54.2); Mean Corpuscular HGB Conc 33.8 GM/DL (32-36); Mean Corpuscular Hemoglobin 31 PG (27-34); Mean Corpuscular Volume 90.6 FL (87-102); Mean Platelet Volume 12.1 FL (9.6-12.0); Monocytes # 0.9 10*3/uL (0.11-0.8); Monocytes % 6.9 % (1.7-12.7); Neutrophils # 11.2 10*3/uL (1.4-7.4); Neutrophils % 84.4 % (38.7-73.9); Platelet Count 174 T/CUMM (130-400); Red Blood Count 4.38 MC/CUMM (3.8-5.5); Red Cell Distribution Width 14.5 % (9.3-17.3); White Blood Count 13.3 T/CUMM (4-12)
[2017-01-14 05:10] LABS: Band Neutrophils 3 % (0-10); Lymphocytes 4 % (20-55); Segmented Neutrophils 82 % (50-85); Total Cells Counted 100
[2017-01-14 05:11] LABS: Hypochromasia Slight
[2017-01-14 05:22] LABS: Albumin 2.2 G/DL (3.4-5.0); Bilirubin,Total 0.4 MG/DL (0.2-1.0); Calcium 7.9 MG/DL (8.5-10.1); Osmolality,Calculated 293.7 MOS/KG (273-304); Potassium 4.1 MMOL/L (3.5-5.1); Total Protein 4.9 G/DL (6.4-8.3)
[2017-01-14] MEDS: INSULIN REGULAR 100 UNIT/ML SUBCUT SCH ×4 (05:52→23:57)
--- NOTE | 2017-01-14 06:57 | XRay Report ---
Referring Physician: Isaias Lagos Exam: XR chest 1V portable Date: January 14, 2017 at 3:13 AM Reason: Ventilation Comparison: Chest post procedure January 13, 2017 Findings: An endotracheal tube, feeding tube and left IJ catheter are again present. The cardiac silhouette is again enlarged. There are opacities within both lower lung zones, left greater than right. This is concerning for pulmonary edema and atelectasis, but there could also be pneumonia. No pneumothorax is identified, but there is mild right pleural fluid and mild to moderate left pleural fluid. The osseous structures appear stable. Impression: Comparison is somewhat difficult due to differences in patient positioning, but there is likely slight increased opacification/pleural fluid at the left lower lung zone. PROCEDURE INTERPRETED AT [facility] DEPARTMENT OF RADIOLOGY Final Report Signed by: Dr. Garo Quinn
[2017-01-14] MEDS: DEXTROSE 5% NACL 0.45% 1,000 ML IV SCH ×2 (07:05→15:36)
[2017-01-14] MEDS: DESITIN 4OZ/NYSTATIN 15 GRAM MIXTURE PASTE TOP SCH ×2 (08:33→21:33)
[2017-01-14] MEDS: LEVOFLOXACIN INJ 750 MG in PREMIX 1 EACH IV SCH (08:33)
[2017-01-14] MEDS: POLYMYXIN/TRIMETHOPRIM OPH SOL 10 ML BOTTLE BOTH EYES SCH ×4 (08:33→21:33)
[2017-01-14] MEDS: SILVER SULFADIAZINE 1% CREAM 25 GM TUBE TOP SCH (08:34)
--- NOTE | 2017-01-14 10:02 | Pulmonology Progress Note ---
Pulmonary - PN: Subj Interval history: This is a 56-year-old white male whom I saw in pulmonary consultation on 2016. My impressions were. 1. Altered mental status resulting in multiple self-inflicted injuries and requiring intubation to protect airways and sedation to protect the patient. 2. Multiple skin injuries all 4 extremities. 3. Disability. Reasons unknown. 4. Probable chronic pain based on records available to us. 5. Drug overdose with toxicology positive for amphetamines/methamphetamine. Consider the possibility of other drugs. 6. Since my initial visit chart notes from the nurse says that sister who lives out of town his call. She says she is the only family member that still tries to help him. She says she has had problems with drugs since age 16. He is been in and out of the [facility] in the past. His sister says he is currently on probation she is currently reporting to his poor role officer. See nurse's notes for more complete information. 01/09/2017. This patient is sedated. He is on the weaning protocol. His x-ray showed right middle lung right lower lung and left lower lung atelectasis. He was evaluated with fiberoptic bronchoscopy this morning. He had retained pulmonary secretions and he had gastric contents bilaterally. This was extensive. Specimens were sent for cytology, bacterial and fungal studies. He tolerated procedure well. Follow-up chest x-ray is pending. This patient has a gram-positive cocci growing from blood cultures. His previous sputum's have shown a gram-negative gab and gram-positive cocci. This patient is on Zosyn. His renal failure has resolved. I will add Levaquin 500 mg IV piggyback once a day until we see what the cultures and sensitivities are. His admit creatinine was 2.90 and is now dropped to 0.80. Admit white blood cell count was 34,500 and it has now dropped 18,003. H&H and platelets are stable. With aspiration injury am going to cover this patient with Solu-Medrol 40 IV push twice a day. His ABGs on mechanical ventilation PEEP of 5 and FiO2 50% shows a pH 7.39, PCO2 of 46, PO2 of 89 and a bicarb of 26.1. Note the sodium is 152 with a potassium of 3.6. Transaminases are elevated. Creatinine was 5092 and has dropped to 3864 01/12/2017. This patient is on stage IV to weaning protocol. ABGs are remarkably better post fiberoptic bronchoscopy. This will be repeated tomorrow. This patient had significant aspiration. The patient has had blood cultures positive for staph aureus. Bronchoalveolar lavage grew Pseudomonas and Klebsiella. Previous sputum's have also grown staph aureus. Left eye is growing a gram-positive cocci. Right eye grew Streptococcus pneumoniae. Infectious disease has been consulted. White blood cell count is 15,000 with 87.2 segs. Chest x-ray cardiomegaly right perihilar fullness residual infiltrate in the medial basal segment of right lower lung. Endotracheal tube is in good position. 01/13/2017. Chest x-ray shows a small bibasilar infiltrates. Patient has positive cultures from previous bronchoscopies and he is being treated for this including positive blood cultures and positive cultures for other sites on his body including both eyes. Today he was reevaluated with bronchoscopy specimens were sent for Gram stain, bacterial culture, fungal stains and culture. Patient had a tremendous amount of retained secretion. I did not see any residual from his previous aspiration of gastric contents. Previously noted erythema and friability of the endobronchial new mucosa is completely resolved. Patient will have her continue to form a lot of secretions for quite some time secondary to this injury. Patient is on stage V of his weaning protocol. He also is on physical therapy protocol. I appreciate Dr. Reyes's infectious disease consultation. ABGs on mechanical ventilation with an FiO2 of 50% show a pH of 7.31, PCO2 48.3, PO2 of 129 and a bicarb of 27.5. White count is elevated 17,300 with 87 segs. H&H 12.8/39.1 and platelets are 182,000. Electrolytes are normal. Creatinine is 0.6 with a BUN of 17. HIV antigen and antibody are nonreactive. 01/14/2017. Today's chest x-ray is stable with cardiomegaly. There is no heart failure. I do not see any clear-cut infiltrates. There is minimal atelectasis at both bases. So far bronchoscopy specimens from yesterday have not yielded any new cultures. ABGs are stable on FiO2 of 50% pressure support of 12 and a PEEP of 3. Today I am switching the patient from IMV to assist control. I am going to advance him from stage V the weaning protocol to a T-tube trial and reevaluate at that point. It turns out the patient is not on proton pump inhibitors and I have found no contraindication for the use of these have been started. Creatinine is 0.6. BUN 16. Electrolytes are normal. White count is dropped to 13,300 with 84 6. H&H is stable at 13.4/39.7. Liver function tests are now normal. Protein and albumin are low at 4.92.2 respectively. Patient gets NG feeding. Labs been reviewed. Medicines been reviewed. Echocardiogram. 01/07/2017. Ejection fraction is 60%. Right atrium and right ventricle are normal in size. No mitral regurgitation. Aortic valve is normal. Tricuspid regurgitation is present. This suggests pulmonary artery pressures of 52 mmHg. Note that the patient is still 5 of PEEP and 10 of pressure support during the time the study was done. Physical exam. Vital signs. See below. Neurologic. Patient moves all fours. He is sedated. Staff says the patient has become cooperative Extremities and face and trunk show multiple abrasions which are being treated. Face is symmetrical. Lips and tongue are normal. Neck. No meningismus. Lymphatics. No submandibular cervical supraclavicular or epitrochlear adenopathy. Chest. Coarse large airway congestion. Bibasilar inspiratory squeaks. Heart. No gallop Abdomen. Rare bowel sounds. Lower extremities show some chronic venous stasis changes. The remainder the exam is noncontributory. Plan. 1. See my note 01/09/2017. Check blood cultures. On Zosyn. Add Levaquin. Check bronchoscopy specimens. Fiberoptic bronchoscopy Aspiration. Add Solu-Medrol. 2. Daily chest x-ray, ABGs and lab. 3. Mechanical ventilation. Weaning protocol 4. Physical therapy protocol while on mechanical ventilation. #5. 01/12/2017. See my note above. Fiberoptic bronchoscopy 01/13/2017. 6. 01/13/2017. See today's note above 7. 01/14/2017. See today's note above. T-tube trial. Exam (Progress Note) - Constitutional Vitals: Period Temp Pulse Resp BP Sys/Raman Pulse Ox Last 24 Hr 97.4 F-99.9 F 74-115 12-40 110-194/53-95 21-99 Results - Labs CBC & BMP: 01/14/17 04:35 01/14/17 04:35
[2017-01-14] MEDS: methylPREDNISolone SOD SUC 40 MG/1 ML VIAL IV SCH ×2 (10:26→23:21)
[2017-01-14] MEDS: THIAMINE INJ 100 MG, FOLIC ACID INJ 1 MG, MULTIVITAMIN INJ 10 ML in SODIUM CHLORIDE 0.9... IV SCH (10:26)
[2017-01-14] MEDS: PANTOPRAZOLE 40 MG VIAL IV SCH (10:26)
--- NOTE | 2017-01-14 10:45 | Infectious Disease Progress ---
Assessment and Plan (1) MSSA (methicillin susceptible Staphylococcus aureus) septicemia Status: Acute Assessment and plan: Most likely source is the multiple abrasions on his skin and he has cellulitis of the left hand. MSSA was isolated from his lungs as well but he does not have impressive pneumonia. Echo [TTE] without evidence of endocarditis. Recommendations: 1. Continue Unasyn 2. Follow-up repeat cultures 3. The patient is going to need IV antibiotic therapy for the staph aureus bloodstream infection for at least 4 weeks 4. Okay to DC contact isolation is no resistant organisms isolated Current Visit: Yes (2) Altered mental status Status: Acute Assessment and plan: Likely due to intoxication from methamphetamine. Improving. Current Visit: Yes (3) Acute renal failure Status: Resolved Assessment and plan: Resolved Current Visit: Yes (4) Pneumonia Status: Acute Assessment and plan: Aspiration pneumonia. Multiple organisms isolated but anaerobes likely also involved. Recommendations: Continue Unasyn and levofloxacin Current Visit: Yes (5) Methamphetamine abuse Status: Acute Current Visit: Yes Infectious Disease - PN: Subj Interval history: Patient has been afebrile, had FOB yesterday with removal of retained secretions. No other new events. Infectious Disease Exam (PN) - Constitutional Vitals: Temp Pulse Resp BP Pulse Ox 98.8 F 79 12 130/72 97 01/14/17 04:00 01/14/17 07:00 01/14/17 07:00 01/14/17 07:00 01/14/17 07:00 General appearance: other (The patient is on the ventilator, but he is intermittently awake and somewhat uncooperative with the exam. He is restrained , and when his arm is released for my exam he does not follow commands.) Exam: General appearance: Sedated - Eye Eye exam: Present: EOMI. no icterus Pupils: Present: JENNIFFER - ENT ENT exam: ET tube in situ - Respiratory Respiratory exam: vesicular BS, no crepitations or wheezes - Cardiovascular Cardiovascular exam: regular rate and rhythm, no murmurs - GI/Abdominal GI/Abdominal exam: normal bowel sounds, soft, non-tender, no organomegaly or mass - Extremities Exam Extremities exam: Generalized the edema, still with excoriations all over body - Skin Skin exam: no rash Results - Labs CBC & BMP: 01/14/17 04:35 01/14/17 04:35 Lab Results: I have reviewed the past 24 hour labs
--- NOTE | 2017-01-14 11:01 | Hospitalist Progress Note ---
Hospitalist: Subjective Interval history: Pt changed to AC with plans for T piece and then trach collar. No fever. Tolerating tubefeeds. No nausea or vomiting. Exam - Constitutional Vitals: Period Temp Pulse Resp BP Sys/Raman Pulse Ox Last 24 Hr 97.4 F-99.9 F 74-115 12-40 110-194/53-95 21-99 Exam: Intubated, Sedated, NAD, RRR no M CTAB anteriorly with good aeration, nonlabored, on vent Soft, NT, ND, +BS Warm no c/c +trace edema Results - Labs CBC & BMP: 01/14/17 04:35 01/14/17 04:35 - Impressions (1) Ventilator dependence Status: Acute Assessment and plan: - Pulmonary managing. Wean as tolerated. - Bronch 01/13 Current Visit: Yes (2) Acute respiratory failure due to MSSA, Pseudomonas and Klebsiella pneumonia likely due to aspiration Status: Acute Assessment and plan: - Bronchial Lavage with Pseudomonas aeruginosa and Klebseilla oxytoca - Sputum culture MSSA and Pseudomonas - Cont IV antibiotics, vent support, IV steroids - Pulm following. Current Visit: Yes (3) Sepsis due to right forearm abscess with MSSA bacteremia and Streptococcus conjunctivitis and polymicrobial pneumonia- improving -Surgery consulted with no plans for surgery at this time. -Cont IV Unasyn and Levaquin -Repeat blood culture 01/09 negative to date -Cont polymyxin B ophthalmologic ointment for conjunctivitis -ECHO showed EF 60% RSVP 52 without significant valvular disease noted. -HIV NR (4) Acute encephalopathy (metabolic and toxic)- resolved Status: Acute Assessment and plan: Reportedly, Patient will wake up and follow commands now Current Visit: Yes (5) Acute renal failure Status: Resolved Assessment and plan: Improved with IV hydration Current Visit: Yes (5) Increased ammonia level Status: Resolved Current Visit: Yes (6) Methamphetamine abuse Status: Acute Current Visit: Yes DVT prophylaxis - on Lovenox Pt is critically ill requiring vent support at this time. 35 minutes of time spent with this patient.
[2017-01-14] MEDS: ENOXAPARIN 40 MG/0.4 ML SYRINGE SUBCUT SCH (12:20)
[2017-01-14 16:43] LABS: ABG Base Excess 5.2 MMOL/L (-2.5-2.5); ABG Oxygen Saturation 95.9 % (95-100); ABG PH 7.443 (7.35-7.45); ABG PO2 76.4 MM HG (80-95); ABG TCO2 25.6 MMOL/L (23-27); Allen Test Positive; Pt O2 Delivery Device Other
[2017-01-15] MEDS: DEXTROSE 5% NACL 0.45% 1,000 ML IV SCH ×2 (01:01→07:01)
[2017-01-15] MEDS: AMPICILLIN/SULBACTAM 3,000 MG in SODIUM CHLORIDE 0.9% 100 ML IV SCH ×2 (01:01→09:07)
[2017-01-15] MEDS: PROPOFOL 1,000 MG/100 ML BOTTLE IV SCH ×3 (01:54→12:58)
[2017-01-15] MEDS: hydrALAZINE 20 MG/1 ML VIAL IV PRN (03:12)
[2017-01-15] MEDS: HYDROmorphone 2 MG/1 ML VIAL IV PRN (04:14)
[2017-01-15 06:46] LABS: Basophils % 0.3 % (0.0-0.8); Hematocrit 41.9 VOL% (42.0-52.0); Hemoglobin 14.4 GM/DL (14.0-18.0); Immature Granulocytes % 7.2 %; Lymphocytes # 0.3 10*3/uL (1.4-4.0); Lymphocytes % 2.2 % (21.2-54.2); Mean Corpuscular HGB Conc 34.4 GM/DL (32-36); Mean Corpuscular Hemoglobin 31 PG (27-34); Mean Corpuscular Volume 89.3 FL (87-102); Mean Platelet Volume 11.8 FL (9.6-12.0); Monocytes # 1.5 10*3/uL (0.11-0.8); Monocytes % 10.1 % (1.7-12.7); NRBC # 0.02 10*3/uL; Neutrophils # 12.3 10*3/uL (1.4-7.4); Neutrophils % 80.2 % (38.7-73.9); Platelet Count 201 T/CUMM (130-400); Red Blood Count 4.69 MC/CUMM (3.8-5.5); Red Cell Distribution Width 14.6 % (9.3-17.3); White Blood Count 15.3 T/CUMM (4-12)
[2017-01-15] MEDS: INSULIN REGULAR 100 UNIT/ML SUBCUT SCH ×2 (06:57→11:38)
[2017-01-15 07:06] LABS: ABG PCO2 45.5 MM HG (35-48); ABG PH 7.43 (7.35-7.45)
[2017-01-15 07:07] LABS: ABG HCO3 28.9 MMOL/L (20-26); ABG TCO2 25.8 MMOL/L (23-27)
[2017-01-15 07:08] LABS: ABG Oxygen Saturation 98.9 % (95-100)
[2017-01-15 07:34] LABS: Band Neutrophils 3 % (0-10); Hypochromasia 2+; Lymphocytes 3 % (20-55); Platelet Estimate Normal; Segmented Neutrophils 83 % (50-85); Total Cells Counted 100
[2017-01-15 07:54] LABS: Calcium 7.8 MG/DL (8.5-10.1); Magnesium 2.1 MG/DL (1.8-2.4); Osmolality,Calculated 293.8 MOS/KG (273-304)
[2017-01-15 08:16] LABS: Prealbumin 19.6 MG/DL (20-40)
[2017-01-15] MEDS ORDERED: FUROSEMIDE 40 MG/4 ML VIAL IV ONE (08:52)
[2017-01-15] MEDS ORDERED: FUROSEMIDE 40 MG/4 ML VIAL ONE (08:55)
[2017-01-15] MEDS: PANTOPRAZOLE 40 MG VIAL IV SCH (09:07)
[2017-01-15] MEDS: POLYMYXIN/TRIMETHOPRIM OPH SOL 10 ML BOTTLE BOTH EYES SCH ×2 (09:11→12:58)
[2017-01-15] MEDS: LEVOFLOXACIN INJ 750 MG in PREMIX 1 EACH IV SCH (09:11)
[2017-01-15] MEDS ORDERED: TETANUS IMMUNE GLOBULIN 250 UNIT SYRINGE IM ONE (09:17)
[2017-01-15 09:30] LABS: Albumin 2.3 G/DL (3.4-5.0); Bilirubin,Total 0.4 MG/DL (0.2-1.0); Calcium 7.6 MG/DL (8.5-10.1); Osmolality,Calculated 293.8 MOS/KG (273-304); Potassium 4.2 MMOL/L (3.5-5.1); Total Protein 5.2 G/DL (6.4-8.3)
[2017-01-15] MEDS ORDERED: DIPH/TET/ACEL PERT BOOSTER VACCINE 0.5 ML VIAL IM ONE (09:30)
[2017-01-15] MEDS ORDERED: CHLORHEXIDINE 0.12% ORAL RINSE 60 ML BOTTLE SWISH/SPIT SCH (09:30)
[2017-01-15] MEDS: DESITIN 4OZ/NYSTATIN 15 GRAM MIXTURE PASTE TOP SCH (09:47)
[2017-01-15] MEDS: SILVER SULFADIAZINE 1% CREAM 25 GM TUBE TOP SCH (09:47)
[2017-01-15] MEDS: methylPREDNISolone SOD SUC 40 MG/1 ML VIAL IV SCH (09:48)
[2017-01-15] MEDS ORDERED: ALBUMIN 25% 25 GM in PREMIX 1 EACH IV SCH (10:00)
[2017-01-15 10:10] LABS: ABG Base Excess 5.8 MMOL/L (-2.5-2.5); ABG HCO3 29.7 MMOL/L (20-26); ABG Oxygen Saturation 98.4 % (95-100); ABG PCO2 46.2 MM HG (35-48); ABG PH 7.437 (7.35-7.45); ABG TCO2 26.3 MMOL/L (23-27)
[2017-01-15] MEDS ORDERED: FUROSEMIDE 20 MG/2 ML VIAL IV SCH (10:30)
[2017-01-15] MEDS: THIAMINE INJ 100 MG, FOLIC ACID INJ 1 MG, MULTIVITAMIN INJ 10 ML in SODIUM CHLORIDE 0.9... IV SCH (11:36)
--- NOTE | 2017-01-15 12:18 | Infectious Disease Progress ---
Assessment and Plan (1) MSSA (methicillin susceptible Staphylococcus aureus) septicemia Status: Acute Assessment and plan: Most likely source is the multiple abrasions on his skin and he has cellulitis of the left hand. MSSA was isolated from his lungs as well but he does not have impressive pneumonia. Echo [TTE] without evidence of endocarditis. Recommendations: 1. Continue Unasyn 2. Follow-up repeat cultures 3. The patient is going to need IV antibiotic therapy for the staph aureus bloodstream infection for at least 4 weeks Current Visit: Yes (2) Altered mental status Status: Acute Assessment and plan: Likely due to intoxication from methamphetamine. Improving. Current Visit: Yes (3) Acute renal failure Status: Resolved Assessment and plan: Resolved Current Visit: Yes (4) Pneumonia Status: Acute Assessment and plan: Aspiration pneumonia. Multiple organisms isolated but anaerobes likely also involved. GNR is going from recent BAL. Recommendations: Continue Unasyn and levofloxacin. Follow-up recent BAL culture. Current Visit: Yes (5) Methamphetamine abuse Status: Acute Current Visit: Yes Infectious Disease - PN: Subj Interval history: No major issues since yesterday, he is waking up off sedation this morning. He has not had any fever. Infectious Disease Exam (PN) - Constitutional Vitals: Temp Pulse Resp BP Pulse Ox 99.1 F 91 H 12 116/54 95 01/15/17 00:00 01/15/17 07:00 01/15/17 07:18 01/15/17 07:00 01/15/17 07:00 General appearance: other (The patient is on the ventilator, but he is intermittently awake and somewhat uncooperative with the exam. He is restrained , and when his arm is released for my exam he does not follow commands.) Exam: General appearance: Awake but still quite drowsy having just been taking off sedation - Eye Eye exam: Present: EOMI. no icterus Pupils: Present: JENNIFFER - ENT ENT exam: ET tube in situ - Respiratory Respiratory exam: vesicular BS, no crepitations or wheezes - Cardiovascular Cardiovascular exam: regular rate and rhythm, no murmurs - GI/Abdominal GI/Abdominal exam: normal bowel sounds, soft, non-tender, no organomegaly or mass - Extremities Exam Extremities exam: Generalized the edema, still with excoriations all over body - Skin Skin exam: no rash Results - Labs CBC & BMP: 01/15/17 04:00 01/15/17 07:04 Lab Results: I have reviewed the past 24 hour labs (GNR is going in BAL)
--- NOTE | 2017-01-15 12:19 | Pulmonology Progress Note ---
Pulmonary - PN: Subj Interval history: This is a 56-year-old white male whom I saw in pulmonary consultation on 2016. My impressions were. 1. Altered mental status resulting in multiple self-inflicted injuries and requiring intubation to protect airways and sedation to protect the patient. 2. Multiple skin injuries all 4 extremities. 3. Disability. Reasons unknown. 4. Probable chronic pain based on records available to us. 5. Drug overdose with toxicology positive for amphetamines/methamphetamine. Consider the possibility of other drugs. 6. Since my initial visit chart notes from the nurse says that sister who lives out of town his call. She says she is the only family member that still tries to help him. She says she has had problems with drugs since age 16. He is been in and out of the [facility] in the past. His sister says he is currently on probation she is currently reporting to his poor role officer. See nurse's notes for more complete information. 01/09/2017. This patient is sedated. He is on the weaning protocol. His x-ray showed right middle lung right lower lung and left lower lung atelectasis. He was evaluated with fiberoptic bronchoscopy this morning. He had retained pulmonary secretions and he had gastric contents bilaterally. This was extensive. Specimens were sent for cytology, bacterial and fungal studies. He tolerated procedure well. Follow-up chest x-ray is pending. This patient has a gram-positive cocci growing from blood cultures. His previous sputum's have shown a gram-negative gab and gram-positive cocci. This patient is on Zosyn. His renal failure has resolved. I will add Levaquin 500 mg IV piggyback once a day until we see what the cultures and sensitivities are. His admit creatinine was 2.90 and is now dropped to 0.80. Admit white blood cell count was 34,500 and it has now dropped 18,003. H&H and platelets are stable. With aspiration injury am going to cover this patient with Solu-Medrol 40 IV push twice a day. His ABGs on mechanical ventilation PEEP of 5 and FiO2 50% shows a pH 7.39, PCO2 of 46, PO2 of 89 and a bicarb of 26.1. Note the sodium is 152 with a potassium of 3.6. Transaminases are elevated. Creatinine was 5092 and has dropped to 3864 01/12/2017. This patient is on stage IV to weaning protocol. ABGs are remarkably better post fiberoptic bronchoscopy. This will be repeated tomorrow. This patient had significant aspiration. The patient has had blood cultures positive for staph aureus. Bronchoalveolar lavage grew Pseudomonas and Klebsiella. Previous sputum's have also grown staph aureus. Left eye is growing a gram-positive cocci. Right eye grew Streptococcus pneumoniae. Infectious disease has been consulted. White blood cell count is 15,000 with 87.2 segs. Chest x-ray cardiomegaly right perihilar fullness residual infiltrate in the medial basal segment of right lower lung. Endotracheal tube is in good position. 01/13/2017. Chest x-ray shows a small bibasilar infiltrates. Patient has positive cultures from previous bronchoscopies and he is being treated for this including positive blood cultures and positive cultures for other sites on his body including both eyes. Today he was reevaluated with bronchoscopy specimens were sent for Gram stain, bacterial culture, fungal stains and culture. Patient had a tremendous amount of retained secretion. I did not see any residual from his previous aspiration of gastric contents. Previously noted erythema and friability of the endobronchial new mucosa is completely resolved. Patient will have her continue to form a lot of secretions for quite some time secondary to this injury. Patient is on stage V of his weaning protocol. He also is on physical therapy protocol. I appreciate Dr. Reyes's infectious disease consultation. ABGs on mechanical ventilation with an FiO2 of 50% show a pH of 7.31, PCO2 48.3, PO2 of 129 and a bicarb of 27.5. White count is elevated 17,300 with 87 segs. H&H 12.8/39.1 and platelets are 182,000. Electrolytes are normal. Creatinine is 0.6 with a BUN of 17. HIV antigen and antibody are nonreactive. 01/14/2017. Today's chest x-ray is stable with cardiomegaly. There is no heart failure. I do not see any clear-cut infiltrates. There is minimal atelectasis at both bases. So far bronchoscopy specimens from yesterday have not yielded any new cultures. ABGs are stable on FiO2 of 50% pressure support of 12 and a PEEP of 3. Today I am switching the patient from IMV to assist control. I am going to advance him from stage V the weaning protocol to a T-tube trial and reevaluate at that point. It turns out the patient is not on proton pump inhibitors and I have found no contraindication for the use of these have been started. Creatinine is 0.6. BUN 16. Electrolytes are normal. White count is dropped to 13,300 with 84 6. H&H is stable at 13.4/39.7. Liver function tests are now normal. Protein and albumin are low at 4.92.2 respectively. Patient gets NG feeding. 01/15/2017. Today's chest x-ray shows heart size central vasculature and interstitial edema is all top normal. BNP is pending but I suspected to be up. Patient has generalized anasarca. Total protein and albumin are low at 4.9 and 2.2 respectively. I have also the patient's fluid. I will start 25 g of salt poor albumin IV piggyback every 8 hours and will follow that with 20 of Lasix IV push. Follows with a daily BMP and BNP. ABGs are stable. Patient did fairly well on the T-tube trial for more than 2 hours yesterday. We will increase these as tolerated on the weaning protocol. White count is 15,300. H& H 14.4 41.9. Platelets of 211,000. Labs been reviewed. Medicines been reviewed. Echocardiogram. 01/07/2017. Ejection fraction is 60%. Right atrium and right ventricle are normal in size. No mitral regurgitation. Aortic valve is normal. Tricuspid regurgitation is present. This suggests pulmonary artery pressures of 52 mmHg. Note that the patient is still 5 of PEEP and 10 of pressure support during the time the study was done. Physical exam. Vital signs. See below. Neurologic. Patient moves all fours. He is sedated. Staff says the patient has become cooperative Extremities and face and trunk show multiple abrasions which are being treated. Face is symmetrical. Lips and tongue are normal. Neck. No meningismus. Lymphatics. No submandibular cervical supraclavicular or epitrochlear adenopathy. Chest. Coarse large airway congestion. Bibasilar inspiratory squeaks. Heart. No gallop Abdomen. Rare bowel sounds. Lower extremities show some chronic venous stasis changes with a recent marked increase in edema. The edema extends to the sacral areas and to both arms.. The remainder the exam is noncontributory. Plan. 1. See my note 01/09/2017. Check blood cultures. On Zosyn. Add Levaquin. Check bronchoscopy specimens. Fiberoptic bronchoscopy Aspiration. Add Solu-Medrol. 2. Daily chest x-ray, ABGs and lab. 3. Mechanical ventilation. Weaning protocol 4. Physical therapy protocol while on mechanical ventilation. #5. 01/12/2017. See my note above. Fiberoptic bronchoscopy 01/13/2017. 6. 01/13/2017. See today's note above 7. 01/14/2017. See today's note above. T-tube trial. 8. 01/15/2017. See today's note above. T-tube trials. Salt poor albumin followed by [facility]. Review of the patient's records show that he did not receive tetanus shot. This is been ordered. There is no history of allergy to it. Exam (Progress Note) - Constitutional Vitals: Period Temp Pulse Resp BP Sys/Raman Pulse Ox Last 24 Hr 97.7 F-99.1 F 83-108 12-28 116-191/54-102 94-99 Results - Labs CBC & BMP: 01/15/17 04:00 01/15/17 07:04
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
[2017-01-15] MEDS: ENOXAPARIN 40 MG/0.4 ML SYRINGE SUBCUT SCH (12:57)
--- NOTE | 2017-01-15 14:03 | XRay Report ---
Referring Physician: Isaias Lagos Exam: XR chest 1V portable Date: January 15, 2017 at 3:07 AM Reason: On ventilator Comparison: Chest one view portable January 14, 2017 Findings: An endotracheal tube, left IJ catheter and feeding tube are again in place. The cardiac silhouette is again enlarged. There are opacities within both lower lung zones and prominent interstitial markings bilaterally. This likely represents pulmonary edema and atelectasis, but superimposed pneumonia is not excluded. No pneumothorax is identified, but there is mild right pleural fluid and mild to moderate left pleural fluid. The osseous structures appear stable. Impression: There has been no significant change. PROCEDURE INTERPRETED AT [facility] DEPARTMENT OF RADIOLOGY Final Report Signed by: Dr. Garo Quinn
[2017-01-15 14:50] VITALS: BP 162/88
== END 2017-01-15 15:08 | DRG 987 ==
LOC: EDBD → EDUNIT# → N.ED 16:03 → N.EDINP 18:06 → SUATTDRO 18:06 → N.ICU 19:37
PROVIDERS: ADMIT Family Medicine; ATTEND Pediatrics